=== PATIENT | female | born 1950 | race Caucasian/White ===

== ENCOUNTER 2019-09-25 12:57 | Observation (INO) | payer OTHER ==
[2019-09-25 13:19] LABS: Absolute Lymphocytes (CBC) 1.5 K/uL (0.7-4.9); Basophils % 0.9 % (0-1.3); Hematocrit 35.4 % (36.0-45.0); Lymphocytes % 24.6 % (15.3-44.8); MPV 8.9 fL (7.6-11.3); RBC Red Blood Cell Count 3.91 M/uL (3.86-4.86)
[2019-09-25 13:32] LABS: ALT/SGPT 21 U/L (12-78); AST/SGOT 16 U/L (15-37); Albumin 3.5 g/dL (3.4-5.0); Alkaline Phosphatase 47 U/L (45-117); BUN Blood Urea Nitrogen 19 mg/dL (7-18); Bicarbonate 22 mmol/L (21-32); Bilirubin Direct < 0.1 mg/dL (0-0.2); Bilirubin Total 0.5 mg/dL (0.2-1.0); Glucose Level 124 mg/dL (74-106); NT PRO-BNP 428 pg/mL (<125); Protein, Total 6.3 g/dL (6.4-8.2); Sodium Level 141 mmol/L (136-145); Troponin (Emerg Dept Use Only) < 0.02 ng/mL (0.0-0.045)
[2019-09-25 13:49] LABS: Protime INR 1.07
--- NOTE | 2019-09-25 14:31 | RAD REPORT ---
EXAM DESCRIPTION: CT - Head Brain Wo Cont - 09/25/2019 2:04 pm CLINICAL HISTORY: syncope COMPARISON: None TECHNIQUE: Computed axial tomography of the head was obtained. IV contrast was not requested. All CT scans are performed using dose optimization technique as appropriate and may include automated exposure control or mA/KV adjustment according to patient size. FINDINGS: An intracranial bleed is not seen . The ventricles are normal in caliber. No extra-axial fluid collection is noted. . Fluid within the sinuses/ mastoids is not seen. IMPRESSION: No acute intracranial abnormality is seen. If patient's symptoms persist MRI of the bra in would be recommended.
--- NOTE | 2019-09-25 14:59 | RAD REPORT ---
EXAM DESCRIPTION: Rudy Single View09/25/2019 2:18 pm CLINICAL HISTORY: Syncope COMPARISON: none FINDINGS: The lungs appear clear of acute infiltrate. The heart is normal size IMPRESSION: No acute abnormalities displayed
--- NOTE | 2019-09-25 15:17 | ER ---
Nurse's Notes [facility] [place] Name: Hazel Morgan Age: 68 yrs Sex: Female : 1950 Arrival Date: 09/25/2019 Time: 12:58 Bed 8 Private MD: Diagnosis: Syncope and collapse;Hypotension Presentation: 09/24 12:45 Chief complaint: EMS states: pt was outside working and had a syncopal episode. On EMS sv arrival pt's SBP was in the 80s HR-83 97% RA 98.2 BS-WNL. Pt was placed in the EMS truck and had 2 more syncopal episodes and was dizzy. 20G R AC and NS bolus 500 mls given. Coronavirus screen: Patient denies a cough. Patient denies shortness of breath or difficulty breathing. Patient denies measured and/or subjective temperature greater than 100.4F prior to today's visit. Patient denies travel on a cruise ship or to a country the [facility] currently lists as an affected area. Patient denies contact with known and/or suspected case of COVID-19. Proceed with normal triage. Patient instructed to continue to wear a mask when interacting with others. Patient moved to private room, placed in contact and droplet isolation with eye protection until further assessment. Ebola Screen: No symptoms or risks identified at this time. Risk Assessment: Do you want to hurt yourself or someone else? Patient reports no desire to harm self or others. Onset of symptoms was September 25, 2019. 12:45 Method Of Arrival: EMS: [facility] sv 12:57 Initial Sepsis Screen: Does the patient meet any 2 criteria? No. Patient's initial sv sepsis screen is negative. Does the patient have a suspected source of infection? No. Patient's initial sepsis screen is negative. 13:00 Acuity: ROSE 2 sv Triage Assessment: 12:45 General: Appears in no apparent distress. comfortable, well developed, Behavior is sv cooperative, appropriate for age, quiet. Pain: Denies pain. Neuro: Level of Consciousness is awake, alert, obeys commands, Oriented to person, place, time, situation, Moves all extremities. Full function Speech is normal, Facial symmetry appears normal, Reports a syncopal episode. Cardiovascular: Patient's skin is warm and dry. Rhythm is sinus rhythm. Respiratory: Airway is patent Respiratory effort is even, unlabored, Respiratory pattern is regular, symmetrical. Derm: Skin is intact, Skin is pink, warm \T\ dry. 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 - Family history:: not pertinent. - Social history:: Smoking status: Patient denies any tobacco usage or history of. Screenin:30 Abuse screen: Denies threats or abuse. Denies injuries from another. Nutritional sv screening: No deficits noted. Tuberculosis screening: No symptoms or risk factors identified. Fall Risk None identified. Assessment: 14:00 Reassessment: Patient appears in no apparent distress at this time. No changes from sv previously documented assessment. Patient and/or family updated on plan of care and expected duration. Pain level reassessed. Patient is alert, oriented x 3, equal unlabored respirations, skin warm/dry/pink. 15:31 Reassessment: Patient appears in no apparent distress at this time. No changes from sv previously documented assessment. Patient and/or family updated on plan of care and expected duration. Pain level reassessed. Patient is alert, oriented x 3, equal unlabored respirations, skin warm/dry/pink. 16:20 Reassessment: Patient appears in no apparent distress at this time. No changes from sv previously documented assessment. Patient and/or family updated on plan of care and expected duration. Pain level reassessed. Patient is alert, oriented x 3, equal unlabored respirations, skin warm/dry/pink. Vital Signs: 12:57 BP 146 / 78; Pulse 71; Resp 14; Temp 98; Pulse Ox 100% ; sv 13:30 BP 157 / 80; Pulse 80; Resp 14; Pulse Ox 95% ; sv 15:14 BP 180 / 97; Pulse 88; Resp 16; Pulse Ox 100% on R/A; sv 16:20 BP 189 / 84; Pulse 77; Resp 16; Pulse Ox 98% ; sv 16:30 BP 189 / 94 Standing; Pulse 74; Resp 18; kj1 16:30 BP 195 / 93 Sitting; Pulse 78; Resp 18; kj1 16:30 BP 194 / 96 Supine; Pulse 70; Resp 18; kj1 20:49 BP 174 / 79; Pulse 80; Resp 18; Pulse Ox 99% on R/A; ea ED Course: 12:45 Placed in gown. Bed in low position. Call light in reach. Side rails up X2. Cardiac sv monitor on. Pulse ox on. NIBP on. 12:55 Maintain EMS IV. Dressing intact. Good blood return noted. Site clean \T\ dry. Gauge \T\ sv site: 20G R AC. 12:58 Patient arrived in ED. sv 13:00 Yadira Vogel, RN is Primary Nurse. sv 13:00 Triage completed. sv 13:00 Initial lab(s) drawn, by me, sent to lab. sv 13:00 Arm band placed on. sv 13:00 Patient has correct armband on for positive identification. sv 13:27 Jonah Martinez MD is Attending Physician. geovany 14:04 CT Head Brain wo Cont In Process Unspecified. EDMS 14:18 XRAY Chest (1 view) In Process Unspecified. EDMS 15:15 Vladislav Jacobsen MD is Hospitalizing Provider. geovany 15:31 Awaiting disposition, Awaiting re-evaluation by ER provider. sv 16:30 Repeat lab(s) drawn. by ED staff, sent to lab. sv 19:08 Primary Nurse role handed off by Yadira Vogel RN sv 20:48 No provider procedures requiring assistance completed. Patient admitted, IV remains in ea place. Administered Medications: 12:50 Drug: NS 0.9% 1000 ml Route: IV; Rate: 1 bolus; Site: right antecubital; sv 14:00 Follow up: Response: No adverse reaction; IV Status: Completed infusion; IV Intake: sv 1000ml Intake: 14:00 IV: 1000ml; Total: 1000ml. sv Outcome: 15:16 Decision to Hospitalize by Provider. geovany 20:48 Admitted to Med/surg accompanied by tech, via wheelchair, with chart, Report called to pollo Bergman RN 20:48 Condition: stable 20:48 Instructed on the need for admit, Demonstrated understanding of instructions. 20:49 Patient left the ED. pollo Signatures: Dispatcher [employer] EDMS Yadira Vogel RN RN sv Anderson, Corey, MD MD cha Antunez, Elena, RN RN ea Jackson, Kandis [email or web address] Corrections: (The following items were deleted from the chart) 15:15 15:14 Pulse 102bpm; Resp 16bpm; Pulse Ox 100% RA; sv sv 15:31 15:14 BP 180 / 97; Pulse 102bpm; Resp 16bpm; Pulse Ox 100% RA; sv sv
--- NOTE | 2019-09-25 15:18 | EDPHYS ---
Physician Documentation [facility] Name: Hazel Morgan Age: 68 yrs Sex: Female : 1950 Arrival Date: 09/25/2019 Time: 12:58 Bed 8 Private MD: ED Physician Jonah Martinez HPI: 09/24 15:11 This 68 yrs old Female presents to ER via EMS with complaints of Syncope, geovany Dizziness. 15:11 The patient has experienced syncope, became unresponsive, collapsed. Onset: The geovany symptoms/episode began/occurred just prior to arrival. Duration: The patient has had multiple episodes, that last 20 second(s). Context: the episode(s) was witnessed, by a bystander, by EMS personnel. Associated injury: The patient did not suffer any apparent associated injury. Associated signs and symptoms: The patient has no apparent associated signs or symptoms. Current symptoms: Currently, the patient is not experiencing any symptoms. The patient has not experienced similar symptoms in the past. 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 - Family history:: not pertinent. - Social history:: Smoking status: Patient denies any tobacco usage or history of. ROS: 15:11 Constitutional: Negative for fever, chills, and weight loss, Eyes: Negative for injury, geovany pain, redness, and discharge, ENT: Negative for injury, pain, and discharge, Neck: Negative for injury, pain, and swelling, Respiratory: Negative for shortness of breath, cough, wheezing, and pleuritic chest pain, Abdomen/GI: Negative for abdominal pain, nausea, vomiting, diarrhea, and constipation, Back: Negative for injury and pain, : Negative for injury, bleeding, discharge, and swelling, MS/Extremity: Negative for injury and deformity, Skin: Negative for injury, rash, and discoloration, Psych: Negative for depression, anxiety, suicide ideation, homicidal ideation, and hallucinations, Allergy/Immunology: Negative for hives, rash, and allergies, Endocrine: Negative for neck swelling, polydipsia, polyuria, polyphagia, and marked weight changes, Hematologic/Lymphatic: Negative for swollen nodes, abnormal bleeding, and unusual bruising. 15:11 Cardiovascular: Positive for palpitations. 15:11 Neuro: Positive for syncope. Exam: 15:11 Constitutional: This is a well developed, well nourished patient who is awake, alert, geovany and in no acute distress. Head/Face: Normocephalic, atraumatic. Eyes: Pupils equal round and reactive to light, extra-ocular motions intact. Lids and lashes normal. Conjunctiva and sclera are non-icteric and not injected. Cornea within normal limits. Periorbital areas with no swelling, redness, or edema. ENT: Nares patent. No nasal discharge, no septal abnormalities noted. Tympanic membranes are normal and external auditory canals are clear. Oropharynx with no redness, swelling, or masses, exudates, or evidence of obstruction, uvula midline. Mucous membranes moist. Neck: Trachea midline, no thyromegaly or masses palpated, and no cervical lymphadenopathy. Supple, full range of motion without nuchal rigidity, or vertebral point tenderness. No Meningismus. Chest/axilla: Normal chest wall appearance and motion. Nontender with no deformity. No lesions are appreciated. Cardiovascular: Regular rate and rhythm with a normal S1 and S2. No gallops, murmurs, or rubs. Normal PMI, no JVD. No pulse deficits. Respiratory: Lungs have equal breath sounds bilaterally, clear to auscultation and percussion. No rales, rhonchi or wheezes noted. No increased work of breathing, no retractions or nasal flaring. Abdomen/GI: Soft, non-tender, with normal bowel sounds. No distension or tympany. No guarding or rebound. No evidence of tenderness throughout. Back: No spinal tenderness. No costovertebral tenderness. Full range of motion. Skin: Warm, dry with normal turgor. Normal color with no rashes, no lesions, and no evidence of cellulitis. MS/ Extremity: Pulses equal, no cyanosis. Neurovascular intact. Full, normal range of motion. Neuro: Awake and alert, GCS 15, oriented to person, place, time, and situation. Cranial nerves II-XII grossly intact. Motor strength 5/5 in all extremities. Sensory grossly intact. Cerebellar exam normal. Normal gait. Psych: Awake, alert, with orientation to person, place and time. Behavior, mood, and affect are within normal limits. 15:11 Musculoskeletal/extremity: DVT Exam: No signs of deep vein thrombosis. no pain, no swelling, no tenderness, negative Homans' sign noted on exam, no appreciated bluish discoloration, no erythema, no increased warmth. 15:23 Cardiovascular: Rate: normal, Rhythm: regular, Pulses: Pulses are 4+ in bilateral geovany radial, brachial, femoral, popliteal, posterior tibial and and dorsalis pedis arteries.. Heart sounds: normal, Edema: is not appreciated, JVD: is not appreciated. 15:24 Cardiovascular: Heart sounds: normal, normal S1and S2, no S3 or S4, no murmur, no rub, geovany no gallop. 15:26 ECG was reviewed by the Attending Physician. [facility] Vital Signs: 12:57 BP 146 / 78; Pulse 71; Resp 14; Temp 98; Pulse Ox 100% ; sv 13:30 BP 157 / 80; Pulse 80; Resp 14; Pulse Ox 95% ; sv 15:14 BP 180 / 97; Pulse 88; Resp 16; Pulse Ox 100% on R/A; sv 16:20 BP 189 / 84; Pulse 77; Resp 16; Pulse Ox 98% ; sv 16:30 BP 189 / 94 Standing; Pulse 74; Resp 18; kj1 16:30 BP 195 / 93 Sitting; Pulse 78; Resp 18; kj1 16:30 BP 194 / 96 Supine; Pulse 70; Resp 18; kj1 20:49 BP 174 / 79; Pulse 80; Resp 18; Pulse Ox 99% on R/A; ea MDM: 13:27 Patient medically screened. [facility] 15:15 Data reviewed: vital signs, nurses notes, EMS record, lab test result(s), EKG, geovany radiologic studies, CT scan, plain films. 15:19 Differential Diagnosis: cardiac arrhythmia, GI bleed, vasovagal episode. Data [facility] interpreted: quality assurance monitor final: rate is 102 beats/min, Pulse oximetry: on room air. Test interpretation: by ED physician or midlevel provider: ECG, plain radiologic studies. Counseling: I had a detailed discussion with the patient and/or guardian regarding: the historical points, exam findings, and any diagnostic results supporting the discharge/admit diagnosis, lab results, radiology results, the need for further work-up and treatment in the hospital. ED course: non focal, weak, no complaints at this time. 09/24 12:59 Order name: Basic Metabolic Panel; Complete Time: 15:10 sv 09/24 12:59 Order name: CBC with Diff; Complete Time: 13:28 sv 09/24 12:59 Order name: LFT's; Complete Time: 15:10 sv 09/24 12:59 Order name: Magnesium; Complete Time: 15:10 sv 09/24 12:59 Order name: NT PRO-BNP; Complete Time: 15:10 sv 09/24 12:59 Order name: PT-INR; Complete Time: 15:10 sv 09/24 12:59 Order name: Troponin (emerg Dept Use Only); Complete Time: 15:10 sv 09/24 16:13 Order name: Troponin (emerg Dept Use Only); Complete Time: 18:21 [facility] 09/24 16:47 Order name: Thyroid Stimulating Hormone EDMS 09/24 16:47 Order name: Urinalysis EDMS 09/24 16:47 Order name: CBC with Automated Diff EDMS 09/24 16:47 Order name: CBC with Automated Diff EDMS 09/24 16:47 Order name: CKMB Creatine Kinase MB EDMS 09/24 16:47 Order name: CKMB Creatine Kinase MB EDMS 09/24 12:59 Order name: XRAY Chest (1 view); Complete Time: 15:10 09/24 13:28 Order name: CT Head Brain wo Cont; Complete Time: 15:10 [facility] 09/24 16:47 Order name: CKMB Creatine Kinase MB EDMS 09/24 16:47 Order name: CKMB Creatine Kinase MB EDMS 09/24 16:47 Order name: Comprehensive Metabolic Panel EDMS 09/24 16:47 Order name: Comprehensive Metabolic Panel EDMS 09/24 16:47 Order name: Lipid Profile EDMS 09/24 16:47 Order name: Lipid Profile EDMS 09/24 16:47 Order name: Magnesium EDMS 09/24 16:47 Order name: Magnesium EDMS 09/24 16:47 Order name: Phosphorus EDMS 09/24 16:47 Order name: Phosphorus EDMS 09/24 16:47 Order name: Troponin I EDMS 09/24 16:47 Order name: Troponin I EDMS 09/24 16:47 Order name: Troponin I EDMS 09/24 16:47 Order name: Troponin I EDMS 09/24 12:59 Order name: EKG; Complete Time: 12:59 sv 09/24 12:59 Order name: Cardiac monitoring; Complete Time: 12:59 09/24 12:59 Order name: EKG - Nurse/Tech; Complete Time: 12:59 09/24 12:59 Order name: IV Saline Lock; Complete Time: 12:59 sv 09/24 12:59 Order name: Labs collected and sent; Complete Time: 12:59 09/24 12:59 Order name: O2 Per Protocol; Complete Time: 12:59 09/24 12:59 Order name: O2 Sat Monitoring; Complete Time: 12:59 sv 09/24 16:13 Order name: Orthostatics; Complete Time: 17:09 [facility] 09/24 16:47 Order name: Physical Therapy Consult [facility] 09/24 16:47 Order name: Heart Healthy [facility] 09/24 19:08 Order name: US; Complete Time: 19:55 EDMS EC:26 Rate is 74 beats/min. Rhythm is regular. QRS [place] is Normal. [place] interval is normal. QRS geovany interval is normal. QT interval is normal. No Q waves. T waves are Normal. No ST changes noted. Clinical impression: Normal ECG and No evidence of ischemia. Interpreted by me. Reviewed by me. Administered Medications: 12:50 Drug: NS 0.9% 1000 ml Route: IV; Rate: 1 bolus; Site: right antecubital; sv 14:00 Follow up: Response: No adverse reaction; IV Status: Completed infusion; IV Intake: sv 1000ml Disposition: 09/25/19 15:16 Hospitalization ordered by Vladislav Jacobsen for Observation. Preliminary diagnosis are Syncope and collapse, Hypotension. - Bed requested for Telemetry/MedSurg (observation). - Status is Observation. ea - Condition is Stable. - Problem is new. - Symptoms have improved. Signatures: Dispatcher [employer] [facility] Anneliese Palacios Stephanie, RN RN sv Anderson, Corey, MD MD cha Garcia, Cindy, RN RN cg Antunez, Elena, RN RN ea Corrections: (The following items were deleted from the chart) 16:44 15:16 Hospitalization Ordered by Vladislav Jacobsen MD for Observation. Preliminary bd diagnosis is Syncope and collapse; Hypotension. Bed requested for Telemetry/MedSurg (observation). Status is Observation. Condition is Stable. Problem is new. Symptoms have improved. geovany 19:52 16:44 09/25/2019 15:16 Hospitalization Ordered by Vladislav Jacobsen MD for Observation. cg Preliminary diagnosis is Syncope and collapse; Hypotension. Bed requested for [facility] ER HOLD. Status is Observation. Condition is Stable. Problem is new. Symptoms have improved. bd 20:49 19:52 09/25/2019 15:16 Hospitalization Ordered by Vladislav Jacobsen MD for Observation. ea Preliminary diagnosis is Syncope and collapse; Hypotension. Bed requested for Telemetry/MedSurg (observation). Status is Observation. Condition is Stable. Problem is new. Symptoms have improved. cg
--- NOTE | 2019-09-25 16:31 | P.HP ---
Certification for Inpatient Patient admitted to: Observation With expected LOS: <2 Midnights Patient will require the following post-hospital care: None Practitioner: I am a practitioner with admitting privileges, knowledge of patient current condition, hospital course, and medical plan of care. Services: Services provided to patient in accordance with Admission requirements found in Title 42 Section 412.3 of the Code of Federal Regulations Patient History Date of Service: 09/25/19 Reason for admission: Dizziness History of Present Illness: 68 yrs old Female with no significant past medical history other than GERD, presents with complaints of Syncope/presyncope, patient states that she was outside and climate was hot and humid and experiencing dizziness and passed out. Denies any seizure-like episode. No headache . No nausea vomiting. No trauma. No fever or chills. Denies any chest pain or shortness of breath. She was found to be hypotensive and was given IV fluids The patient was assessed in the ER and was admitted for further management Allergies No Known Allergies Allergy (Verified 09/25/19 17:47) Home medications list reviewed: Yes Home Medications: Famotidine [Pepcid] 20 mg PO BEDTIME 09/25/19 Xolar 150 mg IM DIRECTED 09/25/19 hydrOXYzine HCL [Atarax] 50 mg PO BEDTIME 09/25/19 - Past Medical/Surgical History Past Medical History: Reviewed- Non-Contributory Past Surgical History: Reviewed- Non-Contributory - Family History Family History: Reviewed- Non-Contributory - Social History Smoking Status: Never smoker Review of Systems 10-point ROS is otherwise unremarkable Physical Examination - Vital Signs Temperature: 98.1 F Blood Pressure: 146/88 Pulse: 76 Respirations: 18 - Physical Exam General: Alert, In no apparent distress HEENT: Atraumatic, Normocephalic Neck: Supple Respiratory: Clear to auscultation bilaterally, Normal air movement Cardiovascular: Regular rate/rhythm, Normal S1 S2 Capillary refill: <2 Seconds Gastrointestinal: Soft and benign, W/out hepatosplenomegaly Musculoskeletal: No clubbing, No swelling Integumentary: No rashes, No breakdown Neurological: Normal speech, Normal strength at 5/5 x4 extr, Other (Alert Awake ) Lymphatics: No axilla or inguinal lymphadenopathy - Studies Laboratory Data (last 24 hrs) 09/25/19 13:00: PT 12.7, INR 1.07 09/25/19 13:00: WBC 6.2, Hgb 12.0, Hct 35.4 L, Plt Count 198 09/25/19 13:00: Sodium 141, Potassium 4.0, BUN 19 H, Creatinine 1.16, Glucose 124 H, Magnesium 2.0, Total Bilirubin 0.5, AST 16, ALT 21, Alkaline Phosphatase 47 Assessment and Plan - Advance Directives Does patient have a Living Will: No Does patient have a Durable POA for Healthcare: No Physician Review Additional Text: Syncope Hypotension Dehydration Plan Monitor under telemetry Trend cardiac enzyme IV hydrate Will get a syncopal workup CT head is negative X-ray chest no acute event Will get a carotid Doppler Will also get an echocardiogram PT eval for orthostatics GI/DVT prophylaxis Advanced directives full code Disposition Possible Dc in a.m. if workup is negative Time Spent Managing Pts Care (In Minutes): 42
[2019-09-25] MEDS ORDERED: ACETAMINOPHEN 500 MG TAB PO PRN (16:43)
[2019-09-25] MEDS ORDERED: ONDANSETRON 4 MG/2 ML VIAL IV PRN (16:43)
[2019-09-25] MEDS: NA CHLORIDE 0.9% 1,000 ML IV SCH ×2 (17:00→21:31)
[2019-09-25] MEDS: ENOXAPARIN 40 MG/0.4 ML SQ SCH (18:00)
[2019-09-25] MEDS ORDERED: ENOXAPARIN 40 MG/0.4 ML SQ ONE (18:01)
[2019-09-25] MEDS ORDERED: NA CHLORIDE 0.9% 1,000 ML ONE (18:01)
--- NOTE | 2019-09-25 19:05 | RAD REPORT ---
EXAM DESCRIPTION: USCarotid Artery Bilateral09/25/2019 6:54 pm CLINICAL HISTORY: syncope COMPARISON: None FINDINGS: The velocity of the right internal carotid artery equals 66 cm/sec. The right ICA/CCA rati o 1.2 The velocity of the left internal carotid artery equals 58 cm/sec. The left ICA/CCA ratio 1. Mild plaque is present within the common and internal carotid arteries. Mild to moderate plaque withi n the right external carotid artery The vertebral arteries demonstrate antegrade flow IMPRESSION: Mild plaque within the internal carotid arteries without evidence of a hemodynamically s ignificant stenosis NASCET criteria used. Mild 0-49% stenosis Moderate 50-69% stenosis Severe 70-99% stenosis
[2019-09-25] MEDS ORDERED: PNEUMOCOCCAL VACCINE 0.5 ML IMVAC ONE (20:00)
[2019-09-25] MEDS ORDERED: hydrOXYzine HCL 25 MG TAB PO SCH (21:00)
[2019-09-25] MEDS ORDERED: FAMOTIDINE 20 MG TAB PO SCH (21:00)
[2019-09-25 21:42] VITALS: BMI 26.9
[2019-09-25 21:54] LABS: CKMB Creatine Kinase MB 1.6 ng/mL (0.3-3.6); Troponin I < 0.02 ng/mL (0.0-0.045)
[2019-09-26 00:07] LABS: Urine Appearance CLEAR; Urine Bilirubin NEGATIVE (NEG); Urine Blood NEGATIVE (NEG); Urine Color YELLOW; Urine Glucose NEGATIVE (NEG); Urine Protein NEGATIVE (NEG); Urine Urobilinogen 0.2 mg/dL (0.2-1.0); Urine pH 6.5 (5.0-7.0)
[2019-09-26 00:13] LABS: Urine Microscopic Reflex NO UMIC
[2019-09-26 01:41] LABS: CKMB Creatine Kinase MB 1.7 ng/mL (0.3-3.6); Troponin I < 0.02 ng/mL (0.0-0.045)
[2019-09-26] MEDS: NA CHLORIDE 0.9% 1,000 ML IV SCH ×3 (03:00→13:00)
[2019-09-26 05:00] LABS: Absolute Lymphocytes (CBC) 2.4 K/uL (0.7-4.9); Basophils % 1.2 % (0-1.3); Hematocrit 35.7 % (36.0-45.0); Lymphocytes % 35.2 % (15.3-44.8); MPV 8.8 fL (7.6-11.3); RBC Red Blood Cell Count 3.99 M/uL (3.86-4.86)
[2019-09-26 05:16] LABS: Albumin 3.4 g/dL (3.4-5.0); Bilirubin Total 0.4 mg/dL (0.2-1.0); Magnesium 2.1 mg/dL (1.8-2.4); Phosphorus 2.9 mg/dL (2.5-4.9); Potassium 4.2 mmol/L (3.5-5.1); Protein, Total 6.5 g/dL (6.4-8.2)
[2019-09-26 09:24] LABS: CKMB Creatine Kinase MB 2.2 ng/mL (0.3-3.6); Troponin I < 0.02 ng/mL (0.0-0.045)
[2019-09-26] MEDS: ENOXAPARIN 40 MG/0.4 ML SQ SCH (10:38)
--- NOTE | 2019-09-26 12:01 | P.DS ---
Admission Date: 09/25/19 Discharge Date: 09/27/19 Disposition: ROUTINE DISCHARGE Discharge Condition: GOOD Reason for Admission: Dizziness Brief History of Present Illness: 68 yrs old Female with no significant past medical history other than GERD, presents with complaints of Syncope/presyncope, patient states that she was outside and climate was hot and humid and experiencing dizziness and passed out. Denies any se izure-like episode. No headache . No nausea vomiting. No trauma. No fever or chills. Denies any chest pain or shortness of breath. She was found to be hypotensive and was given IV fluids The patient was assessed in the ER and was admitted for further management Hospital Course: Syncope Hypotension Dehydration The patient was admitted and was monitored closely under telemetry Cardiac enzymes were trended and was started on IV hydration syncopal workup was done CT head is negative X-ray chest no acute event carotid DopplerWas showing no carotid ultrasounds echocardiogram was also done PT eval for orthostatics Patient wanted go home and is being discharged home today in a stable condition with advice to follow up with PCP in 1 week and also with Cardiology as outpatient. Vital Signs/Physical Exam: Temp Pulse Resp BP Pulse Ox 97.8 F 82 18 159/88 H 96 09/26/19 08:00 09/26/19 08:00 09/26/19 08:00 09/26/19 08:00 09/26/19 08:00 General: Alert, In no apparent distress HEENT: Atraumatic, Normocephalic Neck: Supple Respiratory: Clear to auscultation bilaterally Cardiovascular: Regular rate/rhythm, Normal S1 S2 Capillary refill: <2 Seconds Gastrointestinal: Soft and benign Musculoskeletal: No clubbing Integumentary: No rashes Neurological: Normal speech, Normal strength at 5/5 x4 extr Lymphatics: No axilla or inguinal lymphadenopathy Laboratory Data at Discharge: WBC 6.7 K/uL (4.3-10.9) 09/26/19 04:38 Hgb 12.4 g/dL (12.0-15.0) 09/26/19 04:38 Hct 35.7 % (36.0-45.0) L 09/26/19 04:38 Plt Count 131 K/uL (152-406) L D 09/26/19 04:38 PT 12.7 SECONDS (9.2-12.8) 09/25/19 13:00 INR 1.07 09/25/19 13:00 Sodium 143 mmol/L (136-145) 09/26/19 04:38 Potassium 4.2 mmol/L (3.5-5.1) 09/26/19 04:38 BUN 19 mg/dL (7-18) H 09/26/19 04:38 Creatinine 1.12 mg/dL (0.55-1.3) 09/26/19 04:38 Glucose 104 mg/dL (74-106) 09/26/19 04:38 Phosphorus 2.9 mg/dL (2.5-4.9) 09/26/19 04:38 Magnesium 2.1 mg/dL (1.8-2.4) 09/26/19 04:38 Total Bilirubin 0.4 mg/dL (0.2-1.0) 09/26/19 04:38 AST 16 U/L (15-37) 09/26/19 04:38 ALT 19 U/L (12-78) 09/26/19 04:38 Alkaline Phosphatase 47 U/L (45-117) 09/26/19 04:38 Troponin I < 0.02 ng/mL (0.0-0.045) 09/26/19 08:34 Triglycerides 189 mg/dL (<150) H 09/26/19 04:38 Cholesterol 244 mg/dL (<200) H 09/26/19 04:38 HDL Cholesterol 52 mg/dL (40-60) 09/26/19 04:38 Cholesterol/HDL Ratio 4.69 09/26/19 04:38 Home Medications: Famotidine [Pepcid] 20 mg PO BEDTIME 09/25/19 Xolar 150 mg IM DIRECTED 09/25/19 hydrOXYzine HCL [Atarax*] 50 mg PO BEDTIME 09/25/19 Meclizine HCl 12.5 mg PO Q6H PRN #20 tablet 09/26/19 New Medications: Meclizine HCl 12.5 mg PO Q6H PRN #20 tablet PRN Reason: vertigo Time spent managing pt's care (in minutes): 42
[2019-09-26 12:29] VITALS: O2SAT 96
[2019-09-26 15:19] VITALS: TEMP 97.2
[2019-09-26 16:15] VITALS: BP 140/80
--- NOTE | 2019-09-27 07:37 | EKG ---
Test Date: 2019-09-25 Test Time: 12:56:43 [employer]: SERA MEASUREMENT RESULTS: Intervals: Rate: 74 DC: 170 QRSD: 76 QT: 426 QTc: 472 [place]: P: 43 DC: 170 QRS: -7 T: 49 INTERPRETIVE STATEMENTS: Normal sinus rhythm Left ventricular hypertrophy with repolarization abnormality Abnormal ECG Compared to ECG 11/17/2005 08:23:54 Left ventricular hypertrophy now present Early repolarization now present Sinus arrhythmia no longer present Electronically Signed On 09-27-19 07:32:55 CDT by Ken Alvarenga
--- NOTE | 2019-09-27 09:48 | ECHO ---
HEIGHT: 5 ft 3 in WEIGHT: 152 lb 0 oz DATE OF STUDY: 09/26/[address]: Julius Jacobsen DO 2-DIMENSIONAL: YES M.MODE: YES DOPPLER: YES COLOR FLOW: YES TDS: NO PORTABLE: NO DEFINITY: NO BUBBLE STUDY: NO DIAGNOSIS: SYNCOPE CARDIAC HISTORY: CATHERIZATION: NO SURGERY: NO PROSTHETIC VALVE: NO PACEMAKER: NO MEASUREMENTS (cm) DIASTOLIC (NORMALS) SYSTOLIC (NORMALS) IVSd 0.9 (0.6-1.2) LA Diam 2.6 (1.9-4.0) LVEF 57% LVIDd 3.4 (3.5-5.7) LVIDs 2.4 (2.0-3.5) %FS 29% LVPWd 1.0 (0.6-1.2) Ao Diam 2.9 (2.0-3.7) 2 DIMENSIONAL ASSESSMENT: RIGHT ATRIUM: NORMAL LEFT ATRIUM: NORMAL RIGHT VENTRICLE: NORMAL LEFT VENTRICLE: NORMAL TRICUSPID VALVE: NORMAL MITRAL VALVE: NORMAL PULMONIC VALVE: NORMAL AORTIC VALVE: SCLEROSIS PERICARDIAL EFFUSION: NONE AORTIC ROOT: NORMAL LEFT VENTRICULAR WALL MOTION: NORMAL DOPPLER/COLOR FLOW: MILD TRICUSPID REGURGITATION. COMMENTS: NORMAL LEFT VENTRICULAR SIZE AND FUNCTION. AORTIC SCLEROSIS WITH NO STENOSIS. MILD TRICUSPID REGURGITATION. TECHNOLOGIST: Emigdio LYN
== END 2019-09-26 16:11 | disposition home or self-care (01) ==
LOC: ER 12:57 → ERHOLD 16:44 → 2ND 20:13
PROVIDERS: ADMIT Family Medicine; ATTEND Family Medicine
DX: R55 Syncope and collapse (principal); I95.9 Hypotension, unspecified; E86.0 Dehydration; I65.23 Occlusion and stenosis of bilateral carotid arteries; I51.7 Cardiomegaly; R94.31 Abnormal electrocardiogram [ECG] [EKG]; Z11.59 Encounter for screening for other viral diseases; K21.9 Gastro-esophageal reflux disease without esophagitis; Z79.899 Other long term (current) drug therapy
CPT/HCPCS: 93005; 93306; 85025 ×2; 80048; 36415 ×2; 83735 ×2; 84100; 85610; 80061; 82947; 80076; 84443; 81003; 84484 ×5; 82553 ×3; 80053; 83880; 70450; 71045; 93880; 97162; 96360; 99285; J1650 ×2; J7030 ×2; G0378 ×3

== ENCOUNTER 2020-03-19 16:52 | Observation (INO) | payer OTHER ==
[2020-03-19 18:24] LABS: Absolute Lymphocytes (CBC) 0.9 K/uL (0.7-4.9); Basophils % 0.4 % (0-1.3); Hematocrit 39.2 % (36.0-45.0); Lymphocytes % 8.5 % (15.3-44.8); MPV 8.3 fL (7.6-11.3); RBC Red Blood Cell Count 4.38 M/uL (3.86-4.86)
--- NOTE | 2020-03-19 18:24 | RAD REPORT ---
EXAM DESCRIPTION: RAD - Chest Single View - 03/19/2020 6:16 pm CLINICAL HISTORY: weakness Chest pain. COMPARISON: Chest Single View dated 09/25/2019 FINDINGS: Portable technique limits examination quality. The lungs are emphysematous but grossly clear. The heart is normal in size. No displaced fractures. IMPRESSION: No acute intrathoracic process suspected.
--- NOTE | 2020-03-19 18:27 | RAD REPORT ---
EXAM DESCRIPTION: CT - Head Brain Wo Cont - 03/19/2020 6:21 pm CLINICAL HISTORY: DIZZINESS Headache, drowsiness COMPARISON: Head Brain Wo Cont dated 09/25/2019 TECHNIQUE: All CT scans are performed using dose optimization technique as appropriate and may inclu de automated exposure control or mA/KV adjustment according to patient size. FINDINGS: No intracranial hemorrhage, hydrocephalus or extra-axial fluid collection.No areas of brai n edema or evidence of midline shift. The paranasal sinuses and mastoids are clear. The calvarium is intact. IMPRESSION: No acute intracranial abnormality.
[2020-03-19 18:54] LABS: Protime INR 1.1
[2020-03-19] MEDS ORDERED: MECLIZINE HCL 12.5 MG TAB ONE (18:54)
[2020-03-19 18:57] LABS: ALT/SGPT 29 U/L (12-78); AST/SGOT 18 U/L (15-37); Albumin 3.4 g/dL (3.4-5.0); Alkaline Phosphatase 60 U/L (45-117); BUN Blood Urea Nitrogen 16 mg/dL (7-18); Bicarbonate 29 mmol/L (21-32); Bilirubin Direct < 0.1 mg/dL (0-0.2); Bilirubin Total 0.4 mg/dL (0.2-1.0); Glucose Level 115 mg/dL (74-106); Magnesium 2.4 mg/dL (1.8-2.4); NT PRO-BNP 325 pg/mL (<125); Potassium 4.4 mmol/L (3.5-5.1); Sodium Level 142 mmol/L (136-145); Troponin (Emerg Dept Use Only) < 0.02 ng/mL (0.0-0.045)
--- NOTE | 2020-03-19 20:07 | RAD REPORT ---
EXAM DESCRIPTION: CT - Head angio - 03/19/2020 7:57 pm CLINICAL HISTORY: DIZZINESS Headache, drowsiness COMPARISON: Head Brain Wo Cont dated 03/19/2020; Head Brain Wo Cont dated 09/25/2019 TECHNIQUE: CT angiography of the head was performed with MIPs. All CT scans are performed using dose optimization technique as appropriate and may include automated exposure control or mA/KV adjustment according to patient size. FINDINGS: No evidence of aneurysm is detected. No flow-limiting stenosis or vascular malformation id entified. Antegrade flow is seen in the vertebral arteries. The left vertebral artery is dominant. The visualized dural venous sinuses are patent. IMPRESSION: No significant flow abnormality is detected.
--- NOTE | 2020-03-19 20:12 | RAD REPORT ---
EXAM DESCRIPTION: CT - Neck Angio - 03/19/2020 7:57 pm CLINICAL HISTORY: dizziness Headache, drowsiness. COMPARISON: No comparisons TECHNIQUE: CT angiography of the neck vessels was performed with MIPs. All CT scans are performed using dose optimization technique as appropriate and may include automated exposure control or mA/KV adjustment according to patient size. FINDINGS: A left aortic arch is identified with normal three vessel configuration of the great vesse ls. No significant flow abnormality is seen of the common carotid bilaterally. No significant stenosis is identified involving the cervical segments of both internal carotid arteri es. Stenotic changes are seen at the origin of both external carotid arteries, greater on the right. Normal flow is seen within both vertebral arteries. IMPRESSION: No significant internal carotid artery stenosis is identified.
--- NOTE | 2020-03-19 20:42 | ER ---
Nurse's Notes [facility] Name: Hazel Morgan Age: 69 yrs Sex: Female : 1950 Arrival Date: 03/19/2020 Time: 17:27 Bed 20 Private MD: Diagnosis: Dizziness and giddiness;Malaise and fatigue Presentation: 03/19 17:35 Chief complaint: Patient states: episodes of dizziness and near syncope with nausea em that since Tuesday. Pt reports that they seems to happen when she is repositioning. Coronavirus screen: Client denies travel out of the [place] in the last 14 days. Ebola Screen: Patient denies exposure to infectious person. Patient denies travel to an Ebola-affected area in the 21 days before illness onset. 17:35 Method Of Arrival: EMS: [facility] em 17:35 Initial Sepsis Screen: Does the patient meet any 2 criteria? No. Patient's initial ss sepsis screen is negative. Does the patient have a suspected source of infection? No. Patient's initial sepsis screen is negative. Risk Assessment: Do you want to hurt yourself or someone else? Patient reports no desire to harm self or others. Onset of symptoms was March 17, 2020. Care prior to arrival: Medication(s) given: zofran 4 mg, IV initiated. 20 GA, in the right antecubital area. 17:35 Acuity: ROSE 3 ss 17:41 Care prior to arrival: Glucose check: 186. ss Historical: - Allergies: 17:41 No Known Allergies; ss - PMHx: 17:41 Hypertension; ss - PSHx: 17:41 Cholecystectomy; Hysterectomy; Detached retina; arm fx; ss - Immunization history:: Adult Immunizations up to date. - Social history:: Smoking status: Patient denies any tobacco usage or history of. Screenin:30 Abuse screen: Denies threats or abuse. Nutritional screening: No deficits noted. em Tuberculosis screening: No symptoms or risk factors identified. Fall Risk None identified. Assessment: 18:37 General: Appears in no apparent distress. comfortable, Behavior is calm, cooperative, em appropriate for age, Denies fever. Pain: Denies pain. Neuro: Level of Consciousness is awake, alert, obeys commands, Oriented to person, place, time, situation, Appropriate for age Reports dizziness, Denies headache. Cardiovascular: Capillary refill < 3 seconds Patient's skin is warm and dry. Respiratory: Airway is patent Respiratory effort is even, unlabored, Respiratory pattern is regular, symmetrical. GI: Reports nausea, vomiting. Derm: Skin is intact, is fragile, is thin, Skin is pink, warm \T\ dry. Musculoskeletal: Capillary refill < 3 seconds, Range of motion: intact in all extremities. 19:42 General: Appears in no apparent distress. comfortable, Behavior is calm, cooperative, rr5 appropriate for age, fot CT angio fo head and neck. Neuro: Level of Consciousness is awake, alert, obeys commands, Oriented to person, place, time, Reports dizziness. Cardiovascular: Capillary refill < 3 seconds Patient's skin is warm and dry. Respiratory: Airway is patent Respiratory effort is even, unlabored, Respiratory pattern is regular, symmetrical. GI:. : No signs and/or symptoms were reported regarding the genitourinary system. EENT: No signs and/or symptoms were reported regarding the EENT system. Derm: Skin is fragile, is thin, Skin temperature is warm. Musculoskeletal: Capillary refill < 3 seconds. 20:47 Reassessment: Patient appears in no apparent distress at this time. reassess by ED rr5 provider advised for admission patient agreed for the plan of care. patient able to walk from room to nurses station steady gait but she reported feeling weak. 22:00 Reassessment: Patient appears in no apparent distress at this time. Patient is alert, rr5 oriented x 3, equal unlabored respirations, skin warm/dry/pink. no complaints made awaiting for room assignment. 23:00 Reassessment: Patient appears in no apparent distress at this time. Patient and/or rr5 family updated on plan of care and expected duration. Pain level reassessed. Patient is alert, oriented x 3, equal unlabored respirations, skin warm/dry/pink. 03/20 00:05 Reassessment: Patient appears in no apparent distress at this time. resting eyes closed rr5 breathing spontaneously at room air. 00:45 Reassessment: Patient appears in no apparent distress at this time. Patient is alert, rr5 oriented x 3, equal unlabored respirations, skin warm/dry/pink. transfer to room 222. Vital Signs: 03/19 17:35 BP 154 / 69; Pulse 88; Resp 16; Temp 98.0(TE); Pulse Ox 100% on R/A; Weight 68.04 kg; em Height 5 ft. 3 in. (160.02 cm); Pain 0/10; 18:53 BP 156 / 77; Pulse 83; Resp 18; Pulse Ox 96% on R/A; em 19:42 BP 140 / 73; Pulse 91; Resp 16; Temp 98.1; Pulse Ox 98% ; rr5 21:00 BP 136 / 89; Pulse 85; Resp 17; Temp 98; Pulse Ox 98% ; rr5 22:00 BP 131 / 70; Pulse 80; Resp 16; Pulse Ox 99% ; Pain 0/10; rr5 23:10 BP 126 / 89; Pulse 86; Resp 15; Pulse Ox 98% ; rr5 03/20 00:22 BP 129 / 66; Pulse 77; Resp 14; Temp 98; Pulse Ox 96% ; rr5 03/19 17:35 Body Mass Index 26.57 (68.04 kg, 160.02 cm) em ED Course: 03/19 17:27 Patient arrived in ED. em 17:40 Triage completed. ss 17:41 Arm band placed on left wrist. ss 17:42 Chalino Han, RN is Primary Nurse. em 17:46 Jabier Godwin PA is PHCP. jmm 17:46 Marty Rayo MD is Attending Physician. jmm 18:05 Maintain EMS IV. Dressing intact. Good blood return noted. Site clean \T\ dry. Gauge \T\ shania 3 site: 18-gauge in [facility]. 18:07 Initial lab(s) drawn, by me, sent to lab. X-ray(s) taken. jp3 18:07 Patient maintains SpO2 saturation greater than 95% on room air. jp3 18:09 Bed in low position. Call light in reach. Side rails up X2. Warm blanket given. Verbal jp3 reassurance given. patient monitor on. Pulse ox on. NIBP on. 18:17 XRAY Chest (1 view) In Process Unspecified. EDMS 18:21 CT Head Brain wo Cont In Process Unspecified. EDMS 19:57 CT Head Angio In Process Unspecified. EDMS 19:58 CT Neck Angio In Process Unspecified. EDMS 20:39 Karthik Armas DO is Hospitalizing Provider. jmm 20:47 COVID swab sent to lab. rr5 03/20 00:49 No provider procedures requiring assistance completed. Patient admitted, IV remains in rr5 place. intact, No redness/swelling at site. Administered Medications: 03/19 18:41 Drug: Meclizine 50 mg Route: PO; em 19:40 Follow up: Response: No adverse reaction rr5 Outcome: 20:41 Decision to Hospitalize by Provider. noah 03/20 00:49 Admitted to Med/surg accompanied by tech, via stretcher, room 209. rr5 Condition: stable Instructed on the need for admit. 00:59 Patient left the ED. rr5 Signatures: Dispatcher [employer] EDMS Jabier Godwin PA PA jmm Munoz, Edgar, RN RN Patricia Stephenson, PIERRE RN Jose M Chatterjee 3 José Miguel Bonilla RN RN rr5
--- NOTE | 2020-03-19 20:42 | EDPHYS ---
Physician Documentation [facility] Name: Hazel Morgan Age: 69 yrs Sex: Female : 1950 Arrival Date: 03/19/2020 Time: 17:27 Bed 20 Private MD: ED Physician Marty Rayo HPI: 03/19 20:22 This 69 yrs old Female presents to ER via EMS with complaints of Near Syncope.jmm 20:23 The patient presents with sense of spinning. Onset: The symptoms/episode began/occurred jmm acutely, 2 day(s) ago. Modifying factors: The symptoms are alleviated by holding head still, the symptoms are aggravated by movement of head. Associated signs and symptoms: Pertinent negatives: chest pain, shortness of breath. This is a 69 year old female with a history of htn that presents to the ED with complaints of dizziness beginning this past Tuesday. Worsened today with generalized fatigue and nausea. Denies fever, denies chest pain. Historical: - Allergies: 17:41 No Known Allergies; ss - PMHx: 17:41 Hypertension; ss - PSHx: 17:41 Cholecystectomy; Hysterectomy; Detached retina; arm fx; ss - Immunization history:: Adult Immunizations up to date. - Social history:: Smoking status: Patient denies any tobacco usage or history of. ROS: 20:36 Constitutional: Negative for fever, chills, and weight loss, Cardiovascular: Negative jmm for chest pain, palpitations, and edema, Respiratory: Negative for shortness of breath, cough, wheezing, and pleuritic chest pain. 20:36 Abdomen/GI: Positive for nausea. 20:36 Neuro: Positive for dizziness. 20:36 All other systems are negative. Exam: 18:46 ECG was reviewed by the Attending Physician. jmm 20:36 Constitutional: This is a well developed, well nourished patient who is awake, alert, jmm and in no acute distress. Head/Face: atraumatic. 20:36 Neck: Trachea midline, Supple Chest/axilla: Normal chest wall appearance and motion. Cardiovascular: Regular rate and rhythm. No edema appreciated Respiratory: Normal respirations, no respiratory distress appreciated Abdomen/GI: Non distended, soft Back: Normal ROM Skin: General appearance color normal MS/ Extremity: Moves all extremities, no obvious deformities appreciated, no edema noted to the lower extremities 20:36 Eyes: Nystagmus: nystagmus with fast component noted, in the right eye. 20:36 Neuro: Orientation: is normal, Mentation: is normal, Memory: is normal, Cerebellar function: normal finger to nose testing, heel to saul testing is normal, Motor: is normal, Gait: is steady. 20:36 Psych: Behavior/mood is pleasant, cooperative. Vital Signs: 17:35 BP 154 / 69; Pulse 88; Resp 16; Temp 98.0(TE); Pulse Ox 100% on R/A; Weight 68.04 kg; em Height 5 ft. 3 in. (160.02 cm); Pain 0/10; 18:53 BP 156 / 77; Pulse 83; Resp 18; Pulse Ox 96% on R/A; em 19:42 BP 140 / 73; Pulse 91; Resp 16; Temp 98.1; Pulse Ox 98% ; rr5 21:00 BP 136 / 89; Pulse 85; Resp 17; Temp 98; Pulse Ox 98% ; rr5 22:00 BP 131 / 70; Pulse 80; Resp 16; Pulse Ox 99% ; Pain 0/10; rr5 23:10 BP 126 / 89; Pulse 86; Resp 15; Pulse Ox 98% ; rr5 03/20 00:22 BP 129 / 66; Pulse 77; Resp 14; Temp 98; Pulse Ox 96% ; rr5 03/19 17:35 Body Mass Index 26.57 (68.04 kg, 160.02 cm) em MDM: 03/19 17:46 Patient medically screened. [facility] 20:38 Data reviewed: vital signs, nurses notes. Counseling: I had a detailed discussion with [facility] the patient and/or guardian regarding: the historical points, exam findings, and any diagnostic results supporting the discharge/admit diagnosis, lab results, radiology results. ED course: Dizziness has improved but patient continues to feel generalized weakness. I discussed the patient with Jacques whom accepted the patient to Dr. Pawel pereyra. . 03/19 17:55 Order name: Basic Metabolic Panel; Complete Time: 19:02 [facility] 03/19 17:55 Order name: CBC with Diff; Complete Time: 18:44 [facility] 03/19 17:55 Order name: LFT's; Complete Time: 19:02 [facility] 03/19 17:55 Order name: Magnesium; Complete Time: 19:02 [facility] 03/19 17:55 Order name: NT PRO-BNP; Complete Time: 19:02 [facility] 03/19 17:55 Order name: PT-INR; Complete Time: 19:04 [facility] 03/19 17:55 Order name: Troponin (emerg Dept Use Only); Complete Time: 19:02 [facility] 03/19 17:55 Order name: XRAY Chest (1 view); Complete Time: 18:27 [facility] 03/19 17:55 Order name: CT Head Brain wo Cont; Complete Time: 18:30 [facility] 03/19 19:03 Order name: CT Head Angio; Complete Time: 20:09 [facility] 03/19 19:03 Order name: CT Neck Angio; Complete Time: 20:14 [facility] 03/19 22:28 Order name: SARS-COV-2 RT PCR [facility] 03/19 17:55 Order name: EKG; Complete Time: 17:56 [facility] 03/19 17:55 Order name: Cardiac monitoring; Complete Time: 18:10 [facility] 03/19 17:55 Order name: EKG - Nurse/Tech; Complete Time: 19:08 [facility] 03/19 17:55 Order name: IV Saline Lock; Complete Time: 18:10 [facility] 03/19 17:55 Order name: Labs collected and sent; Complete Time: 18:10 [facility] 03/19 17:55 Order name: O2 Per Protocol; Complete Time: 18:10 [facility] 03/19 17:55 Order name: O2 Sat Monitoring; Complete Time: 18:10 jmm EC:46 Rate is 78 beats/min. Rhythm is regular. QRS [place] is Normal. ME interval is normal. QRS jmm interval is normal. QT interval is normal. No Q waves. T waves are Normal. No ST changes noted. Reviewed by me. Administered Medications: 18:41 Drug: Meclizine 50 mg Route: PO; em 19:40 Follow up: Response: No adverse reaction rr5 Disposition: 03/19/20 20:41 Hospitalization ordered by Karthik Armas for Observation. Preliminary diagnosis are Dizziness and giddiness, Malaise and fatigue. - Bed requested for Telemetry/MedSurg (observation). - Status is Observation. rr5 - Condition is Stable. - Problem is new. - Symptoms have improved. Addendum: 03/22/2020 10:08 Co-signature as Attending Physician, Marty Rayo MD. r n Signatures: Dispatcher [employer] [facility] Carmelina Waterman, RN RN Jabier Hansen PA PA [facility] Chalino Han, RN RN Marty Nicole MD MD rn Smirch, Shelby, RN RN ss Roque, Raymond, RN RN rr5 Corrections: (The following items were deleted from the chart) 03/19 20:36 20:23 This is a 69 year old female with a history of htn that presents to the ED with [facility] complaints of dizziness beginning this past Tuesday. . [facility] :29 20:43 CORONAVIRUS+MR.LAB.BRZ ordered. [facility] 23:41 20:41 Hospitalization Ordered by Karthik Armas DO for Observation. Preliminary diagnosis is Dizziness and giddiness; Malaise and fatigue. Bed requested for Telemetry/MedSurg (observation). Status is Observation. Condition is Stable. Problem is new. Symptoms have improved. [facility] 03/20 00:59 03/19 23:41 03/19/2020 20:41 Hospitalization Ordered by Karthik Armas DO for rr5 Observation. Preliminary diagnosis is Dizziness and giddiness; Malaise and fatigue. Bed requested for Telemetry/MedSurg (observation). Status is Observation. Condition is Stable. Problem is new. Symptoms have improved. dw
--- NOTE | 2020-03-19 21:50 | P.HP ---
Certification for Inpatient Patient admitted to: Observation With expected LOS: <2 Midnights Patient will require the following post-hospital care: None Practitioner: I am a practitioner with admitting privileges, knowledge of patient current condition, hospital course, and medical plan of care. Services: Services provided to patient in accordance with Admission requirements found in Title 42 Section 412.3 of the Code of Federal Regulations <Jacques Carrillo - Last Filed: 03/19/20 21:45> Patient admitted to: Observation With expected LOS: <2 Midnights <Karthik Armas - Last Filed: 03/20/20 11:04> Patient History Date of Service: 03/19/20 Reason for admission: Dizziness History of Present Illness: 69-year-old female with history of hypertension presents to the emergency department for dizziness, weakness. Patient reports that since Tuesday she has had episodic severe dizziness with nausea and vomiting. Patient reports that she also had near syncopal episode where she was extremely weak and had to lower herself to the ground, patient lives at home alone with her has poor hearing and she had laid on the floor for a period of time until her figured out what was going on. Patient reports that she has had 4 or 5 episodes similar to this since Tuesday, reports that when she has this episode she cannot get up remove as this seems to make it worse. Patient was evaluated in the ER CBC unremarkable chemistry GFR is 55 CT head without contrast and CTA of the head and neck were negative for any acute findings, chest x-ray unremarkable. Patient given meclizine in the emergency department which did help some with her symptoms but she still is feeling nauseous and very weak. Attempted ambulation but patient was unable to ambulate without assistance, is very concerned for fall. Discussed with patient at length that she could likely go home with meclizine and strict fall precautions but she was uncomfortable with this. When I saw the patient in the ER she was awake, alert, oriented x3, no focal neurological deficits noted. - Past Medical/Surgical History -: CIU -: Hypertension -: Hysterectomy -: Cholecystectomy -: detached retina -: arm fx Psychosocial/ Personal History: Patient is retired schoolteacher, lives with her - Social History Alcohol use: No CD- Drugs: No Caffeine use: No Place of Residence: Home <Jacques Carrillo - Last Filed: 03/19/20 21:45> Date of Service: 03/20/20 Primary Care Provider: Dr. Lorenzana - Family History Family History: Reviewed- Non-Contributory - Social History Smoking Status: Never smoker <Karthik Armas - Last Filed: 03/20/20 11:04> Allergies No Known Allergies Allergy (Verified 03/20/20 01:57) Home Medications: Famotidine [Pepcid] 20 mg PO DAILY 09/25/19 hydrOXYzine HCL [Atarax*] 50 mg PO BEDTIME 09/25/19 Amlodipine Besylate 1 tab PO DAILY 03/20/20 Cetirizine HCl 1 tab PO DAILY 03/20/20 Review of Systems General: Weakness, Malaise Gastrointestinal: Nausea, Vomiting Neurological: Other (Dizziness), As per HPI <Jacques Carrillo - Last Filed: 03/19/20 21:45> Physical Examination - Physical Exam General: Alert, In no apparent distress HEENT: Atraumatic, PERRLA, Mucous membr. moist/pink Neck: Supple, 2+ carotid pulse no bruit, No LAD Respiratory: Clear to auscultation bilaterally, Normal air movement Cardiovascular: Regular rate/rhythm, Normal S1 S2 Gastrointestinal: Normal bowel sounds, No tenderness Musculoskeletal: No tenderness Integumentary: No rashes Neurological: Normal speech, Normal strength at 5/5 x4 extr, Normal tone, Normal affect, Abnormal gait (Unsteady gait, needs assistance) - Studies Laboratory Data (last 24 hrs) 03/19/20 18:07: PT 13.0 H, INR 1.10 03/19/20 18:07: WBC 10.7, Hgb 13.3, Hct 39.2, Plt Count 278 03/19/20 18:07: Sodium 142, Potassium 4.4, BUN 16, Creatinine 0.99, Glucose 115 H, Magnesium 2.4, Total Bilirubin 0.4, AST 18, ALT 29, Alkaline Phosphatase 60 <Jacques Carrillo - Last Filed: 03/19/20 21:45> - Studies Laboratory Data (last 24 hrs) 03/19/20 18:07: PT 13.0 H, INR 1.10 03/19/20 18:07: WBC 10.7, Hgb 13.3, Hct 39.2, Plt Count 278 03/19/20 18:07: Sodium 142, Potassium 4.4, BUN 16, Creatinine 0.99, Glucose 115 H, Magnesium 2.4, Total Bilirubin 0.4, AST 18, ALT 29, Alkaline Phosphatase 60 <Karthik Armas - Last Filed: 03/20/20 11:04> Assessment and Plan - Plan Assessment Episodic dizziness with nausea and vomiting-suspect vertigo Unsteady gait-risk for falls Hypertension Plan Episodic dizziness with nausea and vomiting-suspect vertigo: MRI in the morning, fall precautions, meclizine PRN. Will have PT evaluate, DVT prophylaxis with Lovenox 40 mg subcutaneous once daily. Anticipate discharge tomorrow. Unsteady gait-risk for falls: PT evaluation, fall precautions. Hypertension: Obtain and continue home medications as appropriate. Discharge Plan: Home Plan to discharge in: 24 Hours - Advance Directives Does patient have a Living Will: No Does patient have a Durable POA for Healthcare: No - Code Status/Comfort Care Code Status Assessed: Yes (Full code) Critical Care: No Time Spent Managing Pts Care (In Minutes): 55 <Jacques Carrillo - Last Filed: 03/19/20 21:45> - Plan Agree with plan of care. Case discussed with nurse practitioner. Await MRI. Patient feels better. Patient appears slightly dry. Will give fluid bolus. Check orthostatics. Anticipate discharge today. <Karthik Armas - Last Filed: 03/20/20 11:04>
[2020-03-20] MEDS ORDERED: ONDANSETRON 4 MG/2 ML VIAL IV PRN (00:30)
[2020-03-20] MEDS ORDERED: MECLIZINE HCL 12.5 MG TAB PO PRN (00:30)
[2020-03-20] MEDS ORDERED: ACETAMINOPHEN 500 MG TAB PO PRN (00:30)
[2020-03-20 01:08] VITALS: O2SAT 96
[2020-03-20 01:53] VITALS: BMI 25.4
[2020-03-20] MEDS ORDERED: PNEUMOCOCCAL VACCINE 0.5 ML IMVAC ONE (06:00)
[2020-03-20 06:03] LABS: Magnesium 2.4 mg/dL (1.8-2.4); Potassium 4.3 mmol/L (3.5-5.1)
[2020-03-20 06:14] LABS: Absolute Lymphocytes (CBC) 1.6 K/uL (0.7-4.9); Basophils % 0.5 % (0-1.3); Hematocrit 37.9 % (36.0-45.0); Lymphocytes % 19.3 % (15.3-44.8); MPV 8.8 fL (7.6-11.3); RBC Red Blood Cell Count 4.18 M/uL (3.86-4.86)
[2020-03-20] MEDS ORDERED: NA CHLORIDE 0.9% 500 ML IV ONE (06:28)
[2020-03-20] MEDS ORDERED: ENOXAPARIN 40 MG/0.4 ML SQ SCH (09:00)
[2020-03-20 10:05] LABS: Blood Morphology Comment NOT SEEN (NOT SEEN); Platelet Estimate ADEQ
--- NOTE | 2020-03-20 11:06 | P.DS ---
Admission Date: 03/19/20 Discharge Date: 03/20/20 Primary Care Provider: Dr. Lorenzana Disposition: ROUTINE DISCHARGE Discharge Condition: GOOD Reason for Admission: dizziness Consultations: none Procedures: COVID: negative CT head: FINDINGS: No intracranial hemorrhage, hydrocephalus or extra-axial fluid collection.No areas of brain edema or evidence of midline shift. The paranasal sinuses and mastoids are clear. The calvarium is intact. IMPRESSION: No acute intracranial abnormality. CTA Head: FINDINGS: No evidence of aneurysm is detected. No flow-limiting stenosis or vascular malformation identified. Antegrade flow is seen in the vertebral arteries. The left vertebral artery is dominant. The visualized dural venous sinuses are patent. IMPRESSION: No significant flow abnormality is detected. Neck CTA: FINDINGS: A left aortic arch is identified with normal three vessel configuration of the great vessels. No significant flow abnormality is seen of the common carotid bilaterally. No significant stenosis is identified involving the cervical segments of both internal carotid arteries. Stenotic changes are seen at the origin of both external carotid arteries, greater on the right. Normal flow is seen within both vertebral arteries. IMPRESSION: No significant internal carotid artery stenosis is identified. MRI Brain: FINDINGS: Diffusion imaging shows approximately 3-4 centimeter area of abnormal diffusion in the peripheral superior right cerebellum. There is additional diffusion signal abnormality in the medial left cerebellum and in the midline cerebellum parenchyma. No basilar artery or posterior circulation abnormality seen on the prior day CT angio imaging. No other infarction changes seen. Patient has mild to moderate underlying atrophy. Very little if any measurable chronic ischemic change in the cerebral white matter. Ventricles are in proportion to the volume loss. No significant edema at the area of stroke. No mass effect or midline shift. No extra-axial fluid collections. Abbasi-matter/whit e matter junction is preserved. Signal voids are seen as a normal finding in the major intracranial vessels. No sella or supra sella abnormality seen. Mastoid air cells are clear. No acute paranasal sinus finding. IMPRESSION: Acute nonhemorrhagic infarction changes involving a 3-4 centimeter area of the peripheral superior right cerebellum. Additional acute nonhemorrhagic changes in the medial left cerebellum and midline cerebellum tissues. Patient has mild to moderate atrophy with little to no identifiable chronic ischemic change in the cerebral white matter. Medical problem list: Episodic dizziness with nausea and vomiting secondary to acute nonhemorrhagic infarct changes involving a 3-4 cm area of peripheral superior right cerebellum and additional acute nonhemorrhagic changes in the medial left cerebellum/midline cerebellum tissue Unsteady gait-risk for falls Hypertension Chronic urticaria Brief History of Present Illness: 69-year-old female with history of hypertension presents to the emergency department for dizziness, weakness. Patient reports that since Tuesday she has had episodic severe dizziness with nausea and vomiting. Patient reports that she also had near syncopal episode where she was extremely weak and had to lower herself to the ground, patient lives at home alone with her has poor hearing and she had laid on the floor for a period of time until her figured out what was going on. Patient reports that she has had 4 or 5 episodes similar to this since Tuesday, reports that when she has this episode she cannot get up remove as this seems to make it worse. Patient was evaluated in the ER CBC unremarkable chemistry GFR is 55, CT head without contrast and CTA of the head and neck were negative for any acute findings, chest x-ray unremarkable. The patient was admitted for further evaluation and treatment Hospital Course: Patient presented with Episodic dizziness with nausea and vomiting secondary. This was found to be related to acute nonhemorrhagic infarct changes involving a 3-4 cm area of peripheral superior right cerebellum and additional acute nonhemorrhagic changes in the medial left cerebellum/midline cerebellum tissue. Patient was monitored closely. CT scan with and without contrast did not show any evidence of stenosis or flow abnormality. Neurology was consulted. Patient was started on medication for CVA. LDL 122. Neurology recommends to initiate aspirin 81 mg daily, Plavix 75 mg daily, folic acid 1 mg daily and Lipitor 40 mg daily. Patient has done well. Patient is back to baseline. No further dizziness, nausea and vomiting noted. Patient was able to ambulate well with physical therapy without difficulty. At discharge patient will continue with aspirin 81 mg daily, Plavix 75 mg daily, folic acid 1 mg daily, and Lipitor 40 mg daily. Patient will continue with aspirin and Plavix for at least 1 month. After 1 month neurology will consider eliminating 1 of the medications. Recommend to recheck fasting lipid panel in 4-6 weeks to monitor her fasting lipid panel. Adjustments in her medication can be done by Neurology or her PCP if required. Education on CVA, hypertension and hyperlipidemia will be provided. Patient will follow up with neurology in 1 week. Patient with hypertension. Patient may continue with Norvasc 5 mg daily. For this week blood pressure can remain around 160-170 systolic. After 1 week better blood pressure control will be required. Goal blood pressure of less than 130/80 should be reached. Further adjustment in medication can be done by her PCP or neurology. Patient with chronic urticaria. Patient will continue with her current medication -Zyrtec Pepcid and hydralazine. Patient will follow up with her full service vending driver for further treatment. Vital Signs/Physical Exam: Temp Pulse Resp BP Pulse Ox 98.3 F 82 17 158/70 H 99 03/20/20 08:00 03/20/20 08:00 03/20/20 08:00 03/20/20 08:00 03/20/20 08:00 General: Alert, In no apparent distress, Oriented x3, Cooperative HEENT: Atraumatic Neck: Supple Respiratory: Clear to auscultation bilaterally, Normal air movement Cardiovascular: Normal pulses, Regular rate/rhythm Gastrointestinal: Normal bowel sounds, Soft and benign, Non-distended, No tenderness, No masses, No rebound, No guarding Musculoskeletal: No erythema, No tenderness, No warmth Integumentary: No tenderness/swelling, No erythema, No warmth, No cyanosis Neurological: Normal speech, Normal strength at 5/5 x4 extr, Normal tone, Normal affect Laboratory Data at Discharge: WBC 8.4 K/uL (4.3-10.9) D 03/20/20 05:36 Hgb 12.6 g/dL (12.0-15.0) 03/20/20 05:36 Hct 37.9 % (36.0-45.0) 03/20/20 05:36 Plt Count 235 K/uL (152-406) 03/20/20 05:36 PT 13.0 SECONDS (9.5-12.5) H 03/19/20 18:07 INR 1.10 03/19/20 18:07 Sodium 143 mmol/L (136-145) 03/20/20 05:36 Potassium 4.3 mmol/L (3.5-5.1) 03/20/20 05:36 BUN 16 mg/dL (7-18) 03/20/20 05:36 Creatinine 0.98 mg/dL (0.55-1.3) 03/20/20 05:36 Glucose 106 mg/dL (74-106) 03/20/20 05:36 Magnesium 2.4 mg/dL (1.8-2.4) 03/20/20 05:36 Total Bilirubin 0.4 mg/dL (0.2-1.0) 03/19/20 18:07 AST 18 U/L (15-37) 03/19/20 18:07 ALT 29 U/L (12-78) 03/19/20 18:07 Alkaline Phosphatase 60 U/L (45-117) 03/19/20 18:07 Home Medications: Famotidine [Pepcid] 20 mg PO DAILY 09/25/19 hydrOXYzine HCL [Atarax*] 50 mg PO BEDTIME 09/25/19 Amlodipine Besylate 1 tab PO DAILY 03/20/20 Aspirin [Aspirin EC 81 MG] 81 mg PO DAILY #90 tablet. 03/20/20 Atorvastatin Calcium [Lipitor] 40 mg PO BEDTIME #30 tab 03/20/20 Cetirizine HCl 1 tab PO DAILY 03/20/20 Clopidogrel Bisulfate [Plavix*] 75 mg PO DAILY #30 tablet 03/20/20 Folic Acid 1 mg PO DAILY #30 tablet 03/20/20 New Medications: Aspirin [Aspirin EC 81 MG] 81 mg PO DAILY #90 tablet. Folic Acid 1 mg PO DAILY #30 tablet Atorvastatin Calcium [Lipitor] 40 mg PO BEDTIME #30 tab Clopidogrel Bisulfate [Plavix*] 75 mg PO DAILY #30 tablet Patient Discharge Instructions: Recommend follow up with PCP in 1 week. Patient presented with Episodic dizziness with nausea and vomiting secondary. This was found to be related to acute nonhemorrhagic infarct changes involving a 3-4 cm area of peripheral superior right cerebellum and additional acute nonhemorrhagic changes in the medial left cerebellum/midline cerebellum tissue. Patient was monitored closely. CT scan with and without contrast did not show any evidence of stenosis or flow abnormality. Neurology was consulted. Patient was started on medication for CVA. LDL 122. Neurology recommends to initiate aspirin 81 mg daily, Plavix 75 mg daily, folic acid 1 mg daily and Lipitor 40 mg daily. Patient has done well. Patient is back to baseline. No further dizziness, nausea and vomiting noted. Patient was able to ambulate well with physical therapy without difficulty. At discharge patient will continue with aspirin 81 mg daily, Plavix 75 mg daily, folic acid 1 mg daily, and Lipitor 40 mg daily. Patient will continue with aspirin and Plavix for at least 1 month. After 1 mon th neurology will consider eliminating 1 of the medications. Recommend to recheck fasting lipid panel in 4-6 weeks to monitor her fasting lipid panel. Adjustments in her medication can be done by Neurology or her PCP if required. Education on CVA, hypertension and hyperlipidemia will be provided. Patient will follow up with neurology in 1 week. Patient with hypertension. Patient may continue with Norvasc 5 mg daily. For this week blood pressure can remain around 160-170 systolic. After 1 week better blood pressure control will be required. Goal blood pressure of less than 130/80 should be reached. Further adjustment in medication can be done by her PCP or neurology. Patient with chronic urticaria. Patient will continue with her current medication -Zyrtec Pepcid and hydralazine. Patient will follow up with her full service vending driver for further treatment. Diet: AHA Activity: Fall precautions Followup: [facility]OTO[facility] [Primary Care Provider] - Time spent managing pt's care (in minutes): 55
--- NOTE | 2020-03-20 11:33 | RAD REPORT ---
EXAM DESCRIPTION: MRI - Brain Wo Cont - 03/20/2020 10:49 am CLINICAL HISTORY: dizziness, near-syncope COMPARISON: Head angio dated 03/19/2020; Neck Angio dated 03/19/2020; Head Brain Wo Cont dated 03/19/19 TECHNIQUE: Sagittal T1-weighted images were obtained along with axial PD, heavily T2-weighted and T2 -FLAIR images. Axial DWI and ADC mapping sequences were also obtained along with coronal heavily T2-w eighted images. FINDINGS: Diffusion imaging shows approximately 3-4 centimeter area of abnormal diffusion in the per ipheral superior right cerebellum. There is additional diffusion signal abnormality in the medial lef t cerebellum and in the midline cerebellum parenchyma. No basilar artery or posterior circulation abn ormality seen on the prior day CT angio imaging. No other infarction changes seen. Patient has mild t o moderate underlying atrophy. Very little if any measurable chronic ischemic change in the cerebral white matter. Ventricles are in proportion to the volume loss. No significant edema at the area of st roke. No mass effect or midline shift. No extra-axial fluid collections. Abbasi-matter/white matter hernesto ction is preserved. Signal voids are seen as a normal finding in the major intracranial vessels. No sella or supra sella abnormality seen. Mastoid air cells are clear. No acute paranasal sinus finding. IMPRESSION: Acute nonhemorrhagic infarction changes involving a 3-4 centimeter area of the periphera l superior right cerebellum. Additional acute nonhemorrhagic changes in the medial left cerebellum and midline cerebellum tissues. Patient has mild to moderate atrophy with little to no identifiable chronic ischemic change in the ce rebral white matter.
[2020-03-20] MEDS ORDERED: ASPIRIN EC 81 MG TAB PO SCH (13:17)
[2020-03-20] MEDS ORDERED: FOLIC ACID 1 MG TABLET PO SCH (13:18)
[2020-03-20] MEDS ORDERED: CLOPIDOGREL 75 MG TABLET PO SCH (13:18)
[2020-03-20 14:29] LABS: Thyroid Stimulating Hormone 2.15 uIU/mL (0.360-3.740)
--- NOTE | 2020-03-20 16:15 | RAD REPORT ---
EXAM DESCRIPTION: US - CP - 03/20/2020 3:44 pm CLINICAL HISTORY: CVA cerebellem Headache, drowsiness, CVA COMPARISON: Neck Angio dated 03/19/2020; Brain Wo Cont dated 03/20/2020; Head angio dated 03/19/2020; H ead Brain Wo Cont dated 03/19/2020 TECHNIQUE: Real-time sonographic evaluation of both carotid systems was performed. Doppler interroga tion was performed with waveform tracing bilaterally. FINDINGS: Normal high resistance waveforms are noted in both external carotid arteries. The common c arotid arteries and internal carotid arteries show normal low resistance waveforms. Moderate hard plaque is seen in the right carotid bulb. Peak systolic and end diastolic velocity valu es and the ICA/CCA ratios are in the non-hemodynamically significant range. Antegrade flow seen in both vertebral arteries. IMPRESSION: Moderate hard plaque is seen in the right carotid bulb. No evidence of a hemodynamically significant stenosis.
[2020-03-20 16:55] VITALS: TEMP 98
[2020-03-20 17:33] VITALS: BP 142/78
[2020-03-20] MEDS ORDERED: hydrOXYzine HCL 25 MG TAB PO SCH (21:00)
[2020-03-20] MEDS ORDERED: ATORVASTATIN 40 MG TAB PO SCH (21:00)
[2020-03-21] MEDS ORDERED: FAMOTIDINE 20 MG TAB PO SCH (09:00)
[2020-03-21] MEDS ORDERED: CETIRIZINE HCL 5 MG TABLET PO SCH (09:00)
[2020-03-21] MEDS ORDERED: AMLODIPINE 5 MG TAB PO SCH (09:00)
--- NOTE | 2020-03-21 09:25 | ECHO ---
HEIGHT: 5 ft 3 in WEIGHT: 143 lb 14.4 oz DATE OF STUDY: 03/20/[address]: Karthik Armas DO 2-DIMENSIONAL: YES M.MODE: YES DOPPLER: YES COLOR FLOW: YES TDS: NO PORTABLE: NO DEFINITY: NO BUBBLE STUDY: NO DIAGNOSIS: CEREBRAL VASCULAR ACCIDENT CARDIAC HISTORY: CATHERIZATION: SURGERY: PROSTHETIC VALVE: PACEMAKER: MEASUREMENTS (cm) DIASTOLIC (NORMALS) SYSTOLIC (NORMALS) IVSd 1.1 (0.6-1.2) LA Diam 3.8 (1.9-4.0) LVEF 69% LVIDd 3.2 (3.5-5.7) LVIDs 2.0 (2.0-3.5) %FS 37% LVPWd 1.3 (0.6-1.2) Ao Diam 2.5 (2.0-3.7) 2 DIMENSIONAL ASSESSMENT: RIGHT ATRIUM: NORMAL LEFT ATRIUM: NORMAL RIGHT VENTRICLE: NORMAL LEFT VENTRICLE: NORMAL TRICUSPID VALVE: NORMAL MITRAL VALVE: NORMAL PULMONIC VALVE: NORMAL AORTIC VALVE: PERICARDIAL EFFUSION: NONE AORTIC ROOT: NORMAL LEFT VENTRICULAR WALL MOTION: NORMAL DOPPLER/COLOR FLOW: SEE BELOW. COMMENTS: NORMAL LEFT VENTRICULAR EJECTION FRACTION 55-60%. NORMAL WALL MOTION. MILD AORTIC INSUFFICIENCY. TECHNOLOGIST: Parvin JARRETT
== END 2020-03-20 18:15 | disposition home or self-care (01) ==
LOC: ER 16:52 → ERHOLD 21:39 → 2ND 03-20 00:25
PROVIDERS: ADMIT Family Medicine; ATTEND Family Medicine
DX: I63.89 Other cerebral infarction (principal); I10 Essential (primary) hypertension; L50.8 Other urticaria; Z20.822 Contact with and (suspected) exposure to COVID-19; R26.81 Unsteadiness on feet
CPT/HCPCS: 93306; 85025 ×2; 80048 ×2; 36415; 83735 ×2; 85610; 80061; 80076; 84443; 84484; 83880; 70450; 70496; 70498; 71045; 93880; 70551; 97112; 97161; 97165; 99285; U0003; Q9967; J1650; J7040; G0378

== ENCOUNTER 2020-03-27 14:29 | Emergency (ER) | payer OTHER ==
[2020-03-27 15:23] LABS: Protime INR 1.01
[2020-03-27 15:24] LABS: Basophils % 0.6 % (0-1.3); Hematocrit 41.1 % (36.0-45.0); Lymphocytes % 17.2 % (15.3-44.8); MPV 8.2 fL (7.6-11.3); RBC Red Blood Cell Count 4.56 M/uL (3.86-4.86)
--- NOTE | 2020-03-27 15:40 | RAD REPORT ---
EXAM DESCRIPTION: RAD - Chest Single View - 03/27/2020 3:25 pm CLINICAL HISTORY: dizziness, fatigue Chest pain. COMPARISON: Chest Single View dated 03/19/2020; Chest Single View dated 09/25/2019 FINDINGS: Portable technique limits examination quality. The lungs are grossly clear. The heart is normal in size. No displaced fractures. IMPRESSION: No acute intrathoracic process suspected.
--- NOTE | 2020-03-27 15:53 | RAD REPORT ---
EXAM DESCRIPTION: CT - Head Brain Wo Cont - 03/27/2020 3:45 pm CLINICAL HISTORY: DIZZINESS Headache, drowsiness COMPARISON: Head angio dated 03/19/2020; Head Brain Wo Cont dated 03/19/2020 TECHNIQUE: All CT scans are performed using dose optimization technique as appropriate and may inclu de automated exposure control or mA/KV adjustment according to patient size. FINDINGS: No intracranial hemorrhage, hydrocephalus or extra-axial fluid collection.Mild to moderate generalized brain atrophy.No areas of brain edema or evidence of midline shift. The paranasal sinuses and mastoids are clear. The calvarium is intact. IMPRESSION: No acute intracranial abnormality.
[2020-03-27 16:13] LABS: ALT/SGPT 30 U/L (12-78); AST/SGOT 23 U/L (15-37); Albumin 3.9 g/dL (3.4-5.0); Alkaline Phosphatase 55 U/L (45-117); BUN Blood Urea Nitrogen 10 mg/dL (7-18); Bicarbonate 28 mmol/L (21-32); Bilirubin Direct < 0.1 mg/dL (0-0.2); Bilirubin Total 0.5 mg/dL (0.2-1.0); Glucose Level 113 mg/dL (74-106); Magnesium 2.4 mg/dL (1.8-2.4); NT PRO-BNP 152 pg/mL (<125); Protein, Total 7.2 g/dL (6.4-8.2); Sodium Level 140 mmol/L (136-145); Troponin (Emerg Dept Use Only) < 0.02 ng/mL (0.0-0.045)
[2020-03-27 17:18] LABS: Urine Blood NEGATIVE (NEG); Urine Glucose NEGATIVE (NEG); Urine Protein NEGATIVE (NEG); Urine Specific Gravity 1.015 (1.005-1.030); Urine pH 7.5 (5.0-7.0)
--- NOTE | 2020-03-27 17:22 | ER ---
Nurse's Notes [facility] Name: Hazel Morgan Age: 69 yrs Sex: Female : 1950 Arrival Date: 03/27/2020 Time: 14:42 Bed 23 Private MD: Diagnosis: Dizziness and giddiness Presentation: 03/27 14:32 Chief complaint: EMS states: Pt. is 69 yr. old A \T\ O x 4, from home. Was sitting in the rb3 chair eating, then the pt. reports that she found herself on the floor. C/o feeling dizzy and weak. 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 Was put on Plavix and Atorvastatin. GCS 15, BP 118/68, P 80, BS 108, and 12=lead showed SR. Stroke assessment was negative. Coronavirus screen: At this time, the client does not indicate any symptoms associated with coronavirus-19. Ebola Screen: Patient denies exposure to infectious person. Initial Sepsis Screen: Does the patient meet any 2 criteria? No. Patient's initial sepsis screen is negative. Does the patient have a suspected source of infection? No. Patient's initial sepsis screen is negative. Risk Assessment: Do you want to hurt yourself or someone else? Patient reports no desire to harm self or others. Onset of symptoms was March 27, 2020. 14:32 Method Of Arrival: EMS: [facility] 3 14:32 Acuity: ROSE 3 rb3 Triage Assessment: 14:32 General: Appears in no apparent distress. comfortable, Behavior is calm, cooperative. rb3 Pain: Denies pain. 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 Neuro: Level of Consciousness is awake, alert, obeys commands, Oriented to person, place, time, situation, Telecommunications Analyst are equal bilaterally Moves all extremities. Gait is unable to obtain at this time. Speech is normal, Facial symmetry appears normal, Pupils are PERRLA, blind in the left eye. Neuro: Reports dizziness, weakness. Cardiovascular: Capillary refill < 3 seconds Patient's skin is warm and dry. Respiratory: Airway is patent Respiratory effort is even, unlabored, Respiratory pattern is regular, symmetrical, Denies shortness of breath. GI: No signs and/or symptoms were reported involving the gastrointestinal system. : No signs and/or symptoms were reported regarding the genitourinary system. Musculoskeletal: Range of motion: intact in all extremities. Historical: - Allergies: 14:32 No Known Allergies; rb3 - Home Meds: 14:32 Zyrtec 10 mg Oral tab 1 tab once daily [Active]; hydroxyzine HCl 25 mg Oral tab 2 tab rb3 nightly [Active]; Famotidine Oral once daily [Active]; amlodipine 5 mg tab 1 tab once daily [Active]; atorvastatin 40 mg oral tab 1 tab once daily [Active]; folic acid 1 mg Oral tab 1 tab once daily [Active]; Plavix 75 mg Oral tab 1 tab once daily [Active]; aspirin 81 mg Oral chew 1 tab once daily [Active]; - PMHx: 14:32 CIU; Hypertension; rb3 - PSHx: 14:32 Cholecystectomy; Hysterectomy; Detached retina; arm fx; rb3 - Immunization history:: Adult Immunizations up to date. - Social history:: Smoking status: Patient/guardian denies using. Screenin:32 Abuse screen: Denies threats or abuse. Nutritional screening: No deficits noted. rb3 Tuberculosis screening: No symptoms or risk factors identified. Fall Risk Fall in past 12 months (25 points). Secondary diagnosis (15 points) CVA, IV access (20 points). Ambulatory Aid- None/Bed Rest/Nurse Assist (0 pts). Gait- Normal/Bed Rest/Wheelchair (0 pts) Mental Status- Oriented to own ability (0 pts). Total House Fall Scale indicates High Risk Score (45 or more points). Fall prevention measures have been instituted. Side Rails Up X 2 Placed Close to Nursing Station 1:1 Attendant Assigned Frequent Obs/Assessments Occuring As available patient and family educated on Fall Prevention Program and Strategies. Assessment: 14:32 General: See triage assessment. rb3 15:30 Reassessment: Patient appears in no apparent distress at this time. No changes from rb3 previously documented assessment. Patient is alert, oriented x 3, equal unlabored respirations, skin warm/dry/pink. 16:30 Reassessment: Patient appears in no apparent distress at this time. No changes from rb3 previously documented assessment. Neuro: Level of Consciousness is awake, alert, obeys commands, Oriented to person, place, time, situation, Speech is normal, Facial symmetry appears normal. 17:30 Reassessment: Patient appears in no apparent distress at this time. No changes from rb3 previously documented assessment. 18:19 Reassessment: Educated the pt. on Plavix and it's side effects. Printed information on rb3 Plavix and it's side effects and gave it to the pt. to take home. Vital Signs: 14:32 BP 157 / 90; Pulse 79; Resp 16; Temp 97.8; Pulse Ox 100% ; Weight 65.77 kg; Height 5 rb3 ft. 3 in. (160.02 cm); Pain 0/10; 15:33 BP 156 / 77; Pulse 79; Resp 15; Pulse Ox 97% ; Pain 0/10; rb3 16:33 BP 159 / 75; Pulse 95; Resp 19; Pulse Ox 99% ; rb3 17:30 BP 172 / 85; Pulse 102; Resp 16; Pulse Ox 97% ; rb3 18:05 BP 160 / 76; Pulse 92; Resp 16; Pulse Ox 98% ; rb3 14:32 Body Mass Index 25.69 (65.77 kg, 160.02 cm) rb3 ED Course: 14:32 Arm band placed on right wrist. rb3 14:32 Patient has correct armband on for positive identification. Bed in low position. Call rb3 light in reach. Side rails up X2. gambling monitor on. Pulse ox on. NIBP on. 14:42 Patient arrived in ED. em1 14:44 Ellie Allen, RN is Primary Nurse. rb3 14:47 Jabier Godwin PA is PHCP. jmm 14:47 Odell Garibay MD is Attending Physician. m 14:51 Triage completed. rb3 15:00 EKG done, by ED staff, reviewed by Odell Garibay MD. kj1 15:08 Initial lab(s) drawn, by ok, sent to lab. kj1 15:08 Inserted saline lock: 20 gauge in left antecubital area, using aseptic technique. Blood kj1 collected. 15:25 XRAY Chest (1 view) In Process Unspecified. EDMS 15:44 CT Head Brain wo Cont In Process Unspecified. EDMS 17:22 Giorgi Zavaleta MD is Referral Physician. jmm 18:20 No provider procedures requiring assistance completed. IV discontinued, intact, rb3 bleeding controlled, No redness/swelling at site. Pressure dressing applied. Administered Medications: No medications were administered Outcome: 17:22 Discharge ordered by . sarah 18:20 Discharged to home via wheelchair. rb3 18:20 Condition: stable 18:20 Discharge instructions given to patient, Instructed on discharge instructions, follow up and referral plans. Demonstrated understanding of instructions, follow-up care, Prescriptions given X none 18:21 Patient left the ED. rb3 Signatures: Dispatcher [employer] EDMS Jabier Godwin PA PA jmm Martinez, Eric em1 Trista Méndez kj1 Ellie Allen, RN RN rb3 Corrections: (The following items were deleted from the chart) 15:14 15:13 Initial lab(s) drawn, by me, sent to lab. kj1 kj1 15:14 15:13 Inserted saline lock: 20 gauge in left antecubital area, using aseptic technique. kj1 Blood collected. kj1
--- NOTE | 2020-03-27 17:23 | EDPHYS ---
Physician Documentation [facility] Name: Hazel Morgan Age: 69 yrs Sex: Female : 1950 Arrival Date: 03/27/2020 Time: 14:42 Bed 23 Private MD: ED Physician Odell Garibay HPI: 03/27 15:12 This 69 yrs old Female presents to ER via EMS with complaints of Dizziness, jmm General Weakness. 15:12 The patient presents with lightheadedness. Onset: The symptoms/episode began/occurred jmm gradually, 1 day(s) ago. Modifying factors: The symptoms are alleviated by nothing, the symptoms are aggravated by nothing. Associated signs and symptoms: Pertinent negatives: abdominal pain, chest pain, shortness of breath. This is a 69 year old female with a recent CVA that presents to the ED with complaints of lightheadedness beginning yesterday. Patient denies focal weakness but states she does not feel herself. Patient was initiated on atorvastatin and plavix this past Tuesday. . Historical: - Allergies: 14:32 No Known Allergies; rb3 - Home Meds: 14:32 Zyrtec 10 mg Oral tab 1 tab once daily [Active]; hydroxyzine HCl 25 mg Oral tab 2 tab rb3 nightly [Active]; Famotidine Oral once daily [Active]; amlodipine 5 mg tab 1 tab once daily [Active]; atorvastatin 40 mg oral tab 1 tab once daily [Active]; folic acid 1 mg Oral tab 1 tab once daily [Active]; Plavix 75 mg Oral tab 1 tab once daily [Active]; aspirin 81 mg Oral chew 1 tab once daily [Active]; - PMHx: 14:32 CIU; Hypertension; rb3 - PSHx: 14:32 Cholecystectomy; Hysterectomy; Detached retina; arm fx; rb3 - Immunization history:: Adult Immunizations up to date. - Social history:: Smoking status: Patient/guardian denies using. ROS: 15:12 Cardiovascular: Negative for chest pain, palpitations, and edema, Respiratory: Negative jmm for shortness of breath, cough, wheezing, and pleuritic chest pain. 15:12 Constitutional: Positive for fatigue. 15:12 Neuro: Positive for lightheadedness. 15:12 All other systems are negative. Exam: 15:12 Constitutional: This is a well developed, well nourished patient who is awake, alert, jmm and in no acute distress. Head/Face: atraumatic. Eyes: EOMI, no conjunctival erythema appreciated ENT: Moist Mucus Membranes Neck: Trachea midline, Supple Chest/axilla: Normal chest wall appearance and motion. Cardiovascular: Regular rate and rhythm. No edema appreciated Respiratory: Normal respirations, no respiratory distress appreciated Abdomen/GI: Non distended, soft Back: Normal ROM Skin: General appearance color normal MS/ Extremity: Moves all extremities, no obvious deformities appreciated, no edema noted to the lower extremities Neuro: Awake and alert, normal gait Psych: Behavior is normal, Mood is normal, Patient is cooperative and pleasant Vital Signs: 14:32 BP 157 / 90; Pulse 79; Resp 16; Temp 97.8; Pulse Ox 100% ; Weight 65.77 kg; Height 5 rb3 ft. 3 in. (160.02 cm); Pain 0/10; 15:33 BP 156 / 77; Pulse 79; Resp 15; Pulse Ox 97% ; Pain 0/10; rb3 16:33 BP 159 / 75; Pulse 95; Resp 19; Pulse Ox 99% ; rb3 17:30 BP 172 / 85; Pulse 102; Resp 16; Pulse Ox 97% ; rb3 18:05 BP 160 / 76; Pulse 92; Resp 16; Pulse Ox 98% ; rb3 14:32 Body Mass Index 25.69 (65.77 kg, 160.02 cm) rb3 MDM: 14:52 Patient medically screened. [facility] 17:20 Data reviewed: vital signs, nurses notes, lab test result(s), EKG, radiologic studies, [facility] CT scan, plain films. Counseling: I had a detailed discussion with the patient and/or guardian regarding: the historical points, exam findings, and any diagnostic results supporting the discharge/admit diagnosis, lab results, radiology results, the need for outpatient follow up, to return to the emergency department if symptoms worsen or persist or if there are any questions or concerns that arise at home. ED course: I discussed the patient with Dr. Zavaleta whom recommended following up with him in clinic. Most likely needs PT. Patient has some concerns on what to expect after CVA and appears anxious. I discussed return precautions with the patient. Patient understood and agrees with the plan of care. . 03/27 15:01 Order name: Basic Metabolic Panel; Complete Time: 16:21 [facility] 03/27 15:01 Order name: CBC with Diff; Complete Time: 15:39 [facility] 03/27 15:01 Order name: LFT's; Complete Time: 16:21 [facility] 03/27 15:01 Order name: Magnesium; Complete Time: 16:21 [facility] 03/27 15:01 Order name: NT PRO-BNP; Complete Time: 16:21 [facility] 03/27 15:01 Order name: PT-INR; Complete Time: 15:39 [facility] 03/27 15:01 Order name: Troponin (emerg Dept Use Only); Complete Time: 16:21 [facility] 03/27 15:01 Order name: XRAY Chest (1 view); Complete Time: 15:41 [facility] 03/27 15:01 Order name: EKG; Complete Time: 15:02 [facility] 03/27 15:01 Order name: Cardiac monitoring; Complete Time: 15:03 [facility] 03/27 15:01 Order name: EKG - Nurse/Tech; Complete Time: 15:03 [facility] 03/27 15:04 Order name: CT Head Brain wo Cont; Complete Time: 15:56 [facility] 03/27 17:01 Order name: Urine Dipstick--Ancillary (enter results); Complete Time: 17:19 [facility] 03/27 15:01 Order name: IV Saline Lock; Complete Time: 15:33 [facility] 03/27 15:01 Order name: Labs collected and sent; Complete Time: 15:33 [facility] 03/27 15:01 Order name: O2 Per Protocol; Complete Time: 15:31 [facility] 03/27 15:01 Order name: O2 Sat Monitoring; Complete Time: 15:31 [facility] 03/27 15:40 Order name: Urine Dipstick-Ancillary (obtain specimen); Complete Time: 16:57 jm Administered Medications: No medications were administered Disposition: 03/28 06:56 Co-signature as Attending Physician, Odell Garibay MD I agree with the assessment and kdr plan of care. Disposition: 03/27/20 17:22 Discharged to Home. Impression: Dizziness and giddiness. - Condition is Stable. - Discharge Instructions: Dizziness. - Medication Reconciliation Form, Thank You Letter, Antibiotic Education, Prescription Opioid Use form. - Follow up: Giorgi Zavaleta MD; When: 2 - 3 days; Reason: Recheck today's complaints, Continuance of care, Re-evaluation by your physician. - Notes: Please call Dr. Zavaleta's office on Tuesday for close follow up due to 2 ER visits and an admission for stroke. Please return to the ER if you develop chest pain, shortness of breath, increased weakness or any other concerning symptoms. Signatures: Dispatcher [employer] EDPA Odell Garibay MD MD kdr Mickail, Joel, PA PA jmm Barber, Rebecca, RN RN rb3 Corrections: (The following items were deleted from the chart) 03/27 17:24 15:57 Brain Wo Cont+MRI.RAD.BRZ ordered. [facility] 18:21 17:22 03/27/2020 17:22 Discharged to Home. Impression: Dizziness and giddiness. rb3 Condition is Stable. Forms are Medication Reconciliation Form, Thank You Letter, Antibiotic Education, Prescription Opioid Use. Follow up: Giorgi Zavaleta; When: 2 - 3 days; Reason: Recheck today's complaints, Continuance of care, Re-evaluation by your physician. sarah
[2020-03-27 22:11] VITALS: TEMP 97.8
[2020-03-27 22:14] VITALS: BP 160/76; O2SAT 98
--- NOTE | 2020-03-28 07:54 | EKG ---
Test Date: 2020-03-27 Test Time: 14:45:00 Cartographic Engineer: FOREIGN MEASUREMENT RESULTS: Intervals: Rate: 77 ME: 166 QRSD: 72 QT: 372 QTc: 420 [place]: P: 47 ME: 166 QRS: 0 T: 62 INTERPRETIVE STATEMENTS: Normal sinus rhythm Normal ECG Compared to ECG 03/19/2020 18:42:09 No significant changes Electronically Signed On 03-28-20 07:49:48 SLAB MILLER OPERATOR by Ken Alvarenga
== END 2020-03-27 18:21 | disposition home or self-care (01) ==
LOC: ER 14:29
DX: R42 Dizziness and giddiness (principal); I10 Essential (primary) hypertension; Z86.73 Personal history of transient ischemic attack (TIA), and cerebral infarction without residual deficits
CPT/HCPCS: 36415; 70450; 71045; 80048; 80076; 81003; 83735; 83880; 84484; 85025; 85610; 93005; 99285

== ENCOUNTER 2020-10-20 07:26 | Day surgery (SDC) | payer OTHER ==
[2020-10-17 16:18] LABS: Absolute Lymphocytes (CBC) 0.9 K/uL (0.7-4.9); Basophils % 1.4 % (0-1.3); Hematocrit 36.5 % (36.0-45.0); Lymphocytes % 17.4 % (15.3-44.8); MPV 7.5 fL (7.6-11.3); RBC Red Blood Cell Count 4.29 M/uL (3.86-4.86)
--- NOTE | 2020-10-17 16:24 | RAD REPORT ---
EXAM DESCRIPTION: Rudy Adan And Leonel (2 Views)10/17/2020 4:20 pm CLINICAL HISTORY: Preop for hernia repair/hypertension COMPARISON: February 2020 FINDINGS: The lungs appear clear of acute infiltrate. The heart is normal size IMPRESSION: No acute abnormalities displayed
[2020-10-20] MEDS ORDERED: HYDROCORTISONE SUC 100 MG INJ ONE (08:09)
[2020-10-20] MEDS ORDERED: Ringers Lactate 1,000 ML IV ONE ×2 (08:21→09:19)
[2020-10-20] MEDS ORDERED: propofoL 200 MG/20 ML VIAL IV ONE (08:37)
[2020-10-20] MEDS ORDERED: FENTANYL CITR 100 MCG/2 ML ONE (08:37)
[2020-10-20] MEDS ORDERED: KETOROLAC 30 MG/ML INJ ONE (08:38)
[2020-10-20] MEDS ORDERED: MIDAZOLAM HCL 2 MG/2 ML INJ ONE (08:38)
[2020-10-20] MEDS ORDERED: ROCURONIUM 50 MG/5 ML VIAL IV ONE (08:38)
[2020-10-20] MEDS ORDERED: dexAMETHasone 10 MG/ML VIAL ONE (08:38)
[2020-10-20] MEDS ORDERED: ONDANSETRON 4 MG/2 ML VIAL ONE (08:38)
[2020-10-20] MEDS ORDERED: BUPIVACAINE 0.5% PF 10 ML VIAL ONE (08:38)
[2020-10-20] MEDS ORDERED: LIDOCAINE 2% MPF 5 ML VIAL ONE (08:38)
[2020-10-20] MEDS ORDERED: CEFAZOLIN/SWI 1gm 1 GM/10 ML SYR ONE (08:51)
--- NOTE | 2020-10-20 09:15 | P.BOP ---
Preoperative diagnosis: incarcerated right inguinal hernia Postoperative diagnosis: same Primary procedure: Open repair of incarcerated right inguinal hernia with mesh [employer] Superintendent: eC Wall) Estimated blood loss: <10cc Specimen: none Findings: incarcerated right inguinal hernia Anesthesia: General Complications: None Implants: medium mesh and plug Transferred to: Recovery Room Condition: Good
[2020-10-20 09:45] VITALS: TEMP 97.1
[2020-10-20] MEDS ORDERED: CODEINE 30MG/APAP 300MG TAB ONE (10:47)
[2020-10-20 11:30] VITALS: BP 142/75; O2SAT 97
--- NOTE | 2020-10-22 19:44 | DS ---
Date of Discharge: 10/20/2020 Diagnosis: Incarcerated right inguinal hernia. Procedure: Open repair of incarcerated right inguinal hernia with mesh. Disposition: Home. Activity: As tolerated. No heavy lifting. Plan: Follow up in my office in 1 week. Call for appointment at [phone]. Keep area dry for 48 jai rs, then may shower. Cold compress to the right inguinal region for 24 hours. Medications: See orders. POLA/TIMUR Voice ID: [id number] Report ID: [id number]
--- NOTE | 2020-10-22 19:44 | OP ---
Date of Procedure: 10/20/2020 Surgeon: Dionicio Watson MD [employer] Mounter: MARSHA Fragoso. Preoperative Diagnosis: Incarcerated right inguinal hernia. Postoperative Diagnosis: Incarcerated right inguinal hernia. Procedure: Open repair of incarcerated right inguinal hernia with mesh. Estimated Blood Loss: Less than 10 mL. Specimen: None. Findings: Incarcerated right inguinal hernia. Anesthesia: General plus local. Implant: Medium mesh, plug and sheath. Indication: This is the case of a female, who comes to us with above diagnosis. Fully explained the benefits, alternatives, and risks of repair of incarcerated right inguinal hernia with mesh, which i nclude, but not limited to infection, bleeding, damage to adjacent structures, anesthesia complicatio n, recurrence, chronic pain, chronic numbness, MD, and even . She also understands this may not relieve any symptoms. She might need more than one surgical intervention. She understood, signed a consent. Procedure In Detail: The patient was brought to the operating room, placed in supine position. Anes thesia was done without complication. The inguinal and abdominal area were prepped and draped in usu al sterile fashion. A time-out was called. Local anesthesia was applied followed by sharp incision of the skin in the right inguinal region. Incision was carried down to Jeanna fascia until we find e xternal oblique aponeurosis and we opened that in direction of the fibers. We identified the ilioing uinal nerve and iliohypogastric nerve, protected that behind external oblique aponeurosis, identified direct hernia present. Dissected free, incarcerated omentum carefully reduced. The hernia sac was then reduced and imbricated. We proceeded to imbricate the area with the help of 2-0 Prolene. We se lected a medium plug, placed in the defect, secured in place with VersaTack and a mesh sheet placed o n the inguinal canal securing that to the pubic tubercle and shelving edge of inguinal ligament and t ransversalis fascia. The area was irrigated. No bleeding. At that moment, I proceeded to bring the ilioinguinal nerve and iliohypogastric nerve back into the inguinal canal, reconstructed the area by closing the external oblique aponeurosis making sure the nerves were not included. The area was irr igated. The Jeanna fascia closed with 3-0 chromic and the skin with nathan. Sponge count and instr ument counts correct. The patient tolerated the procedure well. The patient was sent to recovery in stable condition. POLA/TIMUR Voice ID: [id number] Report ID: [id number]
== END 2020-10-20 11:08 | disposition home or self-care (01) ==
LOC: OR 07:26
PROVIDERS: ATTEND Surgery
PROC: 0YU50JZ Supplement Right Inguinal Region with Synthetic Substitute, Open Approach (ICD-10-PCS; principal; 2020-10-20 08:30)
DX: K40.30 Unilateral inguinal hernia, with obstruction, without gangrene, not specified as recurrent (principal); Z20.822 Contact with and (suspected) exposure to COVID-19; I10 Essential (primary) hypertension
CPT/HCPCS: 93005; 85025; 80048; 36415; 71046; 49507; U0003; J2704; J3010; J1100; J0690; J7120 ×2; J1720; J2405; J2250

== ENCOUNTER 2021-01-04 10:40 | Observation (INO) | payer OTHER ==
[2021-01-04 11:07] LABS: Hematocrit 37.6 % (36.0-45.0); Lymphocytes % 17.2 % (15.3-44.8); RBC Red Blood Cell Count 4.25 M/uL (3.86-4.86)
[2021-01-04 11:10] LABS: Protime INR 1.09
[2021-01-04 11:26] LABS: ALT/SGPT 40 U/L (12-78); AST/SGOT 24 U/L (15-37); Albumin 3.5 g/dL (3.4-5.0); Alkaline Phosphatase 62 U/L (45-117); BUN Blood Urea Nitrogen 17 mg/dL (7-18); Bicarbonate 23 mmol/L (21-32); Bilirubin Direct 0.1 mg/dL (0-0.2); Bilirubin Total 0.4 mg/dL (0.2-1.0); Glucose Level 102 mg/dL (74-106); Magnesium 2.1 mg/dL (1.8-2.4); NT PRO-BNP 315 pg/mL (<125); Potassium 4.1 mmol/L (3.5-5.1); Protein, Total 6.8 g/dL (6.4-8.2); Sodium Level 143 mmol/L (136-145); Troponin (Emerg Dept Use Only) < 0.02 ng/mL (0.0-0.045)
--- NOTE | 2021-01-04 11:42 | RAD REPORT ---
EXAM DESCRIPTION: CT - Head Brain Wo Cont - 01/04/2021 11:04 am CLINICAL HISTORY: Syncope COMPARISON: February 2020 TECHNIQUE: Computed axial tomography of the head was obtained. IV contrast was not requested. All CT scans are performed using dose optimization technique as appropriate and may include automated exposure control or mA/KV adjustment according to patient size. FINDINGS: An intracranial bleed is not seen . The ventricles are normal in caliber. No extra-axial fluid collection is noted. Fluid within the sinuses/ mastoids is not seen. IMPRESSION: No acute intracranial abnormality is seen. If patient's symptoms persist MRI of the bra in would be recommended.
--- NOTE | 2021-01-04 12:12 | RAD REPORT ---
EXAM DESCRIPTION: Rudy Single View01/04/2021 11:16 am CLINICAL HISTORY: Syncope COMPARISON: September 2020 FINDINGS: The lungs appear clear of acute infiltrate. The heart is normal size IMPRESSION: No acute abnormalities displayed
--- NOTE | 2021-01-04 12:33 | ER ---
Nurse's Notes [facility] Name: Hazel Morgan Age: 70 yrs Sex: Female : 1950 Arrival Date: 01/04/2021 Time: 10:41 Bed 7 Private MD: Diagnosis: Syncope Near;Muscle weakness (generalized) Presentation: 01/04 10:56 Chief complaint: EMS states: "pt was [facility] when she reported feeling hot, dizzy, jd3 and nauseous. pt had a syncope episode. pt was awake when we arrived but systolic BP was 54. she was placed in Trendelenburg and 18 G IV to the left AC was started and 500 ml NS was give. pt as been A\\T\\O X 4. systolic came up to 130's. 12 lead looked good and BGL was 92. 4 mg of Zofran given for nausea.". Coronavirus screen: At this time, the client does not indicate any symptoms associated with coronavirus-19. Ebola Screen: Patient negative for fever greater than or equal to 101.5 degrees Fahrenheit, and additional compatible Ebola Virus Disease symptoms. Initial Sepsis Screen: Does the patient meet any 2 criteria? No. Patient's initial sepsis screen is negative. Does the patient have a suspected source of infection? No. Patient's initial sepsis screen is negative. Risk Assessment: Do you want to hurt yourself or someone else? Patient reports no desire to harm self or others. Onset of symptoms was January 04, 2021. Care prior to arrival: Medication(s) given: Normal saline infusion, 500 mL, zofran 4 mg, IV initiated. 18 GA, in the left antecubital area, Glucose check: 92. 10:56 Method Of Arrival: EMS: [facility] jd3 10:56 Acuity: ROSE 2 jd3 Historical: - Allergies: 11: No Known Allergies; jd3 - Home Meds: 11:01 Plavix 75 mg Oral tab 1 tab once daily [Active]; amlodipine 5 mg tab 1 tab once daily jd3 [Active]; aspirin 81 mg Oral chew 1 tab once daily [Active]; atorvastatin 40 mg Oral tab 1 tab once daily [Active]; Famotidine Oral once daily [Active]; folic acid 1 mg Oral tab 1 tab once daily [Active]; hydroxyzine HCl 25 mg Oral tab 2 tab nightly [Active]; zolar IM Q2 weeks [Active]; Zyrtec 10 mg Oral tab 1 tab once daily [Active]; - PMHx: 11:01 CIU; Hypertension; CVA; jd3 - Immunization history:: Adult Immunizations up to date, Client reports receiving the 2nd dose of the Covid vaccine. - Social history:: Smoking status: Patient denies any tobacco usage or history of. Screenin:05 Abuse screen: Denies threats or abuse. Nutritional screening: No deficits noted. jd3 Tuberculosis screening: No symptoms or risk factors identified. Fall Risk Ambulatory Aid- None/Bed Rest/Nurse Assist (0 pts). Gait- Normal/Bed Rest/Wheelchair (0 pts) Mental Status- Oriented to own ability (0 pts). Total House Fall Scale indicates No Risk (0-24 pts). Assessment: 11:03 General: Appears uncomfortable, Behavior is calm, cooperative, appropriate for age, jd3 Reports fatigue for >3 days. Pain: Denies pain. Neuro: Level of Consciousness is awake, alert, obeys commands, Oriented to person, place, time, situation, Reports dizziness, a syncopal episode weakness generalized. Cardiovascular: Denies chest pain, Capillary refill < 3 seconds Patient's skin is warm and dry. Rhythm is regular. Respiratory: Airway is patent Respiratory effort is even, unlabored, Respiratory pattern is regular, symmetrical, Denies cough, shortness of breath. GI: Reports nausea, Patient currently denies abdominal pain. : No signs and/or symptoms were reported regarding the genitourinary system. EENT: No signs and/or symptoms were reported regarding the EENT system. Derm: Skin is intact, Skin is dry, Skin is normal, Skin temperature is warm. Musculoskeletal: Circulation, motion, and sensation intact. Range of motion: intact in all extremities. 11:40 Reassessment: No changes from previously documented assessment. Patient and/or family jd3 updated on plan of care and expected duration. Pain level reassessed. Patient is alert, oriented x 3, equal unlabored respirations, skin warm/dry/pink. 13:23 Reassessment: No changes from previously documented assessment. Patient and/or family jd3 updated on plan of care and expected duration. Pain level reassessed. Patient is alert, oriented x 3, equal unlabored respirations, skin warm/dry/pink. Vital Signs: 11:02 BP 139 / 71; Pulse 71; Resp 18 S; Temp 98.5(O); Pulse Ox 99% on R/A; Weight 57.15 kg jd3 (R); Height 5 ft. 3 in. (160.02 cm) (R); Pain 0/10; 11:40 BP 136 / 76; Pulse 72; Resp 17 S; Pulse Ox 100% on R/A; jd3 13:23 BP 127 / 60; Pulse 74; Resp 14 S; Pulse Ox 100% on R/A; jd3 11:02 Body Mass Index 22.32 (57.15 kg, 160.02 cm) jd3 ED Course: 10:41 Patient arrived in ED. ds1 10:42 Ezequiel Mejia MD is Attending Physician. sp3 10:56 Jesus Medina, PIERRE is Primary Nurse. jd3 11:00 Inserted saline lock: 18 gauge in left antecubital area, using aseptic technique. Blood kj1 collected. Inserted. 11:00 EKG done, by ED staff, reviewed by Ezequiel Mejia MD. kj1 11:01 Triage completed. jd3 11:03 CT Head Brain wo Cont In Process Unspecified. EDMS 11:03 Arm band placed on. EKG completed in triage. Results shown to MD. jd3 11:03 Initial lab(s) drawn, by me, sent to lab. kj1 11:05 Patient has correct armband on for positive identification. Placed in gown. Bed in low jd3 position. Call light in reach. Side rails up X2. Adult w/ patient. monitoring tech on. Pulse ox on. NIBP on. 11:16 XRAY Chest (1 view) In Process Unspecified. EDMS 12:32 Mora Rao MD is Hospitalizing Provider. sp3 13:38 No provider procedures requiring assistance completed. Patient admitted, IV remains in jl7 place. intact, No redness/swelling at site. Administered Medications: 13:19 Drug: Zofran (Ondansetron) 4 mg Route: IVP; Site: left antecubital; jl7 13:54 Follow up: Response: No adverse reaction jd3 13:19 Drug: NS 0.9% 500 ml Route: IV; Rate: bolus; Site: left antecubital; jl7 13:55 Follow up: Response: No adverse reaction; IV Status: Completed infusion; IV Intake: jd3 500ml Intake: 13:55 IV: 500ml; Total: 500ml. jd3 Outcome: 12:32 Decision to Hospitalize by Provider. sp3 13:53 Admitted to Med/surg accompanied by tech, via stretcher, room 228, with chart. jd3 13:53 Condition: stable 13:53 Instructed on the need for admit, Demonstrated understanding of instructions. 14:11 Patient left the ED. jl7 Signatures: Dispatcher [employer] EDDC Ruby Nuñez dsBryan Wheatley RN RN jl7 Jesus eMdina RN RN [email or web address] Trista Méndez kj1 Ezequiel Mejia MD MD sp3
--- NOTE | 2021-01-04 12:33 | EDPHYS ---
Physician Documentation [facility] Name: Hazel Morgan Age: 70 yrs Sex: Female : 1950 Arrival Date: 01/04/2021 Time: 10:41 Bed 7 Private MD: ED Physician Ezequiel Mejia HPI: 01/04 10:55 This 70 yrs old Female presents to ER via EMS with complaints of syncope. sp3 10:55 1-year-old female with a history of CVA, hypertension on aspirin and Plavix who sp3 presents via EMS for a syncopal episode that occurred just prior to arrival while patient was in [facility]. Patient states that she was sitting on a chair and then suddenly got hot and weak and per her she slumped over in the chair after which she slowly came to after a few seconds and was given a little bit of water while EMS was activated. Patient did not have any trauma or fall or head injury. Patient denies any other symptoms including current headache, neck pain, shortness of breath, chest pain, back pain, abdominal pain, vomiting, diarrhea, new focal weakness, altered sensation, memory loss, any other symptoms at this time. Patient does state that she has had a headache off and on for the last week and is also currently nauseated.. Historical: - Allergies: 11:01 No Known Allergies; jd3 - Home Meds: 11:01 Plavix 75 mg Oral tab 1 tab once daily [Active]; amlodipine 5 mg tab 1 tab once daily jd3 [Active]; aspirin 81 mg Oral chew 1 tab once daily [Active]; atorvastatin 40 mg Oral tab 1 tab once daily [Active]; Famotidine Oral once daily [Active]; folic acid 1 mg Oral tab 1 tab once daily [Active]; hydroxyzine HCl 25 mg Oral tab 2 tab nightly [Active]; zolar IM Q2 weeks [Active]; Zyrtec 10 mg Oral tab 1 tab once daily [Active]; - PMHx: 11:01 CIU; Hypertension; CVA; jd3 - Immunization history:: Adult Immunizations up to date, Client reports receiving the 2nd dose of the Covid vaccine. - Social history:: Smoking status: Patient denies any tobacco usage or history of. ROS: 10:56 Constitutional: Negative for fever, chills, and weight loss, Eyes: Negative for injury, sp3 pain, redness, and discharge, ENT: Negative for injury, pain, and discharge, Neck: Negative for injury, pain, and swelling, Cardiovascular: Negative for chest pain, palpitations, and edema, Respiratory: Negative for shortness of breath, cough, wheezing, and pleuritic chest pain, Abdomen/GI: Negative for abdominal pain vomiting, diarrhea, and constipation, Back: Negative for injury and pain, Psych: Negative for depression, anxiety, suicide ideation, homicidal ideation, and hallucinations, Allergy/Immunology: Negative for hives, rash, and allergies, Endocrine: Negative for neck swelling, polydipsia, polyuria, polyphagia, and marked weight changes. 10:56 All other systems are negative. Exam: 10:57 Constitutional: This is a well developed, well nourished patient who is awake, alert, sp3 and in no acute distress. Head/Face: Normocephalic, atraumatic. Eyes: Pupils equal round and reactive to light, extra-ocular motions intact. Lids and lashes normal. Conjunctiva and sclera are non-icteric and not injected. Cornea within normal limits. Periorbital areas with no swelling, redness, or edema. ENT: Nares patent. No nasal discharge, no septal abnormalities noted. External auditory canals are clear. Oropharynx with no redness, swelling, or masses, exudates, or evidence of obstruction, uvula midline. Mucous membranes moist. Neck: Trachea midline, no thyromegaly or masses palpated, and no cervical lymphadenopathy. Supple, full range of motion without nuchal rigidity, or vertebral point tenderness. No Meningismus. Chest/axilla: Normal chest wall appearance and motion. Nontender with no deformity. No lesions are appreciated. Cardiovascular: Regular rate and rhythm with a normal S1 and S2. No gallops, murmurs, or rubs. Normal PMI, no JVD. No pulse deficits. Respiratory: Lungs have equal breath sounds bilaterally, clear to auscultation and percussion. No rales, rhonchi or wheezes noted. No increased work of breathing, no retractions or nasal flaring. Abdomen/GI: Soft, non-tender, with normal bowel sounds. No distension or tympany. No guarding or rebound. No evidence of tenderness throughout. Back: No spinal tenderness. No costovertebral tenderness. Full range of motion. Skin: Warm, dry with normal turgor. Normal color with no rashes, no lesions, and no evidence of cellulitis. MS/ Extremity: Pulses equal, no cyanosis. Neurovascular intact. Full, normal range of motion. Psych: Awake, alert, with orientation to person, place and time. Behavior, mood, and affect are within normal limits. 10:57 Neuro: Patient has chronic left-sided deficits particular in the upper extremity from a motor and strength standpoint. Currently patient has equal strength in the lower extremities and 4 out of 5 strength on the left upper and normal on the right upper. Patient can make an okay sign with both hands. There is no facial droop, or weakness, or any other deficit. Memory and cognition are intact. Cranial nerves II through XII are intact. Pupils equal round reactive to light and extraocular movements are intact. Proprioception and [id number] are normal on the right side.. Vital Signs: 11:02 BP 139 / 71; Pulse 71; Resp 18 S; Temp 98.5(O); Pulse Ox 99% on R/A; Weight 57.15 kg jd3 (R); Height 5 ft. 3 in. (160.02 cm) (R); Pain 0/10; 11:40 BP 136 / 76; Pulse 72; Resp 17 S; Pulse Ox 100% on R/A; jd3 13:23 BP 127 / 60; Pulse 74; Resp 14 S; Pulse Ox 100% on R/A; jd3 11:02 Body Mass Index 22.32 (57.15 kg, 160.02 cm) jd3 MDM: 10:42 Patient medically screened. sp3 10:58 Data reviewed: vital signs, nurses notes. ED course: 70-year-old female with a syncopal sp3 episode. Given her prior history of CVA, we will obtain a CT scan of the head and a cardiac work-up including laboratory values, EKG, chest x-ray. The patient is improved we will consider discharge with neuro appointment follow-up otherwise if patient still feels weak will admit for 23-hour observation. Initial blood pressure by EMS was "54". However after 500 cc of normal saline the pressure was systolically 120. I am not sure of the initial blood pressure of 54 however it likely was lower which caused her syncopal episode.. 12:29 ED course: She states that she still feels weak and she felt this way when she last had sp3 a stroke. We will go ahead and observe patient and get MRI and consult neurology. Serial markers as well.. 01/04 10:43 Order name: Basic Metabolic Panel; Complete Time: 12:21 sp3 01/04 10:43 Order name: CBC with Diff; Complete Time: 12:21 sp3 01/04 10:43 Order name: LFT's; Complete Time: 12:21 sp3 01/04 10:43 Order name: Magnesium; Complete Time: 12:21 sp3 01/04 10:43 Order name: NT PRO-BNP; Complete Time: 12:21 sp3 01/04 10:43 Order name: PT-INR; Complete Time: 12:21 sp3 01/04 10:43 Order name: Troponin (emerg Dept Use Only); Complete Time: 12:21 sp3 01/04 11:08 Order name: SARS-COV-2 RT PCR (Document "Date of Onset" if Symptomatic); Complete Time: eb 12:21 01/04 13:16 Order name: Comprehensive Metabolic Panel EDMS 01/04 13:16 Order name: Comprehensive Metabolic Panel EDMS 01/04 13:16 Order name: Lipid Profile EDMS 01/04 13:16 Order name: Lipid Profile EDMS 01/04 13:16 Order name: Magnesium EDMS 01/04 13:16 Order name: Magnesium EDMS 01/04 10:43 Order name: XRAY Chest (1 view); Complete Time: 12:21 sp3 01/04 10:43 Order name: EKG; Complete Time: 10:44 sp3 01/04 10:43 Order name: CT Head Brain wo Cont; Complete Time: 12:21 sp3 01/04 13:16 Order name: Physical Therapy Consult EDMS 01/04 13:16 Order name: Phosphorus EDMS 01/04 13:16 Order name: Phosphorus EDMS 01/04 13:16 Order name: Troponin I EDMS 01/04 13:16 Order name: Troponin I EDMS 01/04 13:17 Order name: Echo with Doppler EDMS 01/04 13:17 Order name: EKG Electrocardiogram EDMS 01/04 13:17 Order name: CBC with Automated Diff EDMS 01/04 13:17 Order name: CBC with Automated Diff EDMS 01/04 13:17 Order name: Stroke Protocol EDMS 01/04 10:43 Order name: Cardiac monitoring; Complete Time: 11:38 sp3 01/04 10:43 Order name: EKG - Nurse/Tech; Complete Time: 11:02 sp3 01/04 10:43 Order name: IV Saline Lock; Complete Time: 11:02 sp3 01/04 10:43 Order name: Labs collected and sent; Complete Time: 11:02 sp3 01/04 10:43 Order name: O2 Per Protocol; Complete Time: 11:39 sp3 01/04 10:43 Order name: O2 Sat Monitoring; Complete Time: 11:39 sp3 01/04 13:17 Order name: Speech Therapy Consult EDMS Administered Medications: 13:19 Drug: Zofran (Ondansetron) 4 mg Route: IVP; Site: left antecubital; jl7 13:54 Follow up: Response: No adverse reaction jd3 13:19 Drug: NS 0.9% 500 ml Route: IV; Rate: bolus; Site: left antecubital; jl7 13:55 Follow up: Response: No adverse reaction; IV Status: Completed infusion; IV Intake: jd3 500ml Disposition Summary: 01/04/21 12:32 Hospitalization Ordered Hospitalization Status: Observation sp3 Provider: Mora Rao sp3 Location: Telemetry/MedSur (observation) sp3 Condition: Stable sp3 Problem: an acute exacerbation sp3 Symptoms: are unchanged sp3 Bed/Room Type: Standard sp3 Room Assignment: 228(01/04/21 13:29) Diagnosis - Syncope Near sp3 - Muscle weakness (generalized) sp3 Forms: - Medication Reconciliation Form sp3 - SBAR form sp3 Signatures: Dispatcher [employer] EDMS Carmelina Waterman RN RN dw Leal, Jahala, RN RN jl7 Jesus Medina RN RN jd3 Ezequiel Mejia MD MD sp3 Corrections: (The following items were deleted from the chart) 13:20 13:18 Chest Pa And Lat (2 Views) ordered. EDHI EDMS 13:29 12:32 sp3 dw
[2021-01-04] MEDS ORDERED: ACETAMINOPHEN 500 MG TAB PO PRN (13:10)
[2021-01-04] MEDS ORDERED: ONDANSETRON 4 MG/2 ML VIAL IV PRN (13:10)
[2021-01-04] MEDS ORDERED: ONDANSETRON 4 MG/2 ML VIAL ONE (13:15)
[2021-01-04] MEDS ORDERED: NA CHLORIDE 0.9% 500 ML ONE (13:15)
[2021-01-04 15:06] VITALS: BMI 22.3
[2021-01-04] MEDS: NA CHLORIDE 0.9% 1,000 ML IV SCH (15:06)
[2021-01-04] MEDS ORDERED: ATORVASTATIN 80 MG TAB PO SCH (21:00)
--- NOTE | 2021-01-05 00:38 | P.HP ---
Certification for Inpatient Patient admitted to: Observation With expected LOS: <2 Midnights Patient will require the following post-hospital care: None Practitioner: I am a practitioner with admitting privileges, knowledge of patient current condition, hospital course, and medical plan of care. Services: Services provided to patient in accordance with Admission requirements found in Title 42 Section 412.3 of the Code of Federal Regulations Patient History Date of Service: 01/04/21 Reason for admission: Near syncope History of Present Illness: Patient is a 70-year-old female who was admitted to the hospital with a near syncopal event. Patient had a stroke in February. Since that time patient had been doing fairly well. Patient states that she had recovered quite well. She was not scheduled to see Neurology for another year. She started having some issues 2 weeks ago with her vision. Her right eye was blurry. Afterwards she started having a headache about 3 days ago. The headache was waxing and waning. She had been eating well. She says that morning she went to [employer] and was not feeling well. She got lightheaded. She started feeling faint. Her states that she went out but not completely. They called EMS and EMS stated that she had a low blood pressure. They do not know the exact number but per ER it was mentioned that her blood pressure was in the 50s. She was brought into the ER and her blood pressure had improved she started feeling better. CT of the brain was negative. Labs were stable. Decision was made to admit the patient to the hospital for further evaluation. She did have hernia surgery a little while ago. At that time she was told to see a air route controller. Will get an echocardiogram. Monitor cardiac status while in the hospital. Patient will be on telemetry. Allergies No Known Allergies Allergy (Verified 10/17/20 15:33) Home Medications: Famotidine [Pepcid] 20 mg PO DAILY 09/25/19 hydrOXYzine HCL [Atarax*] 50 mg PO BEDTIME PRN 09/25/19 Amlodipine Besylate 10 mg PO BEDTIME 03/20/20 Aspirin [Aspirin EC 81 MG] 81 mg PO DAILY #90 tablet. 03/20/20 Atorvastatin Calcium [Lipitor] 40 mg PO BEDTIME #30 tab 03/20/20 Cetirizine HCl 1 tab PO DAILY 03/20/20 Clopidogrel Bisulfate [Plavix*] 75 mg PO DAILY #30 tablet 03/20/20 Docusate [Colace Cap*] 100 mg PO DAILY 10/17/20 Fluocinolone Acetonide [Bnenz-Gmcosej-Mt] 118.28 ml TP PRN PRN 10/17/20 Hydrocortisone/Pramoxine [Hydrocort-Pramoxine 2.5%-1% cm] 4 gm RC PRN PRN 09/29 Omalizumab [Xolair] 150 mg SQ SEECOM 10/17/20 Codeine/APAP [Tylenol W/Codeine #3 tab] 1 tab PO Q4HP PRN #20 tab 10/20/20 Folic Acid 1 mg PO DAILY 01/04/21 - Past Medical/Surgical History Has patient received pneumonia vaccine in the past: No Diabetic: No -: CIU -: Hypertension -: CVA -: ECZEMA -: Hysterectomy -: Cholecystectomy -: detached retina -: arm fx -: CATARACT SURGERY Psychosocial/ Personal History: Patient is retired schoolteacher, lives with her - Family History Mother Medical History: Other (see notes) Notes: Leukemia Father Medical History: Other (see notes) Notes: triple bypass Sister Medical History: Other (see notes) Notes: Lymphoma, ruptured spleen - Social History Smoking Status: Never smoker Alcohol use: No CD- Drugs: No Caffeine use: No Place of Residence: Home Review of Systems 10-point ROS is otherwise unremarkable Physical Examination - Vital Signs Temperature: 97.3 F Blood Pressure: 121/71 Pulse: 88 Respirations: 18 Pulse Ox (%): 98 - Physical Exam General: Alert, In no apparent distress, Oriented x3 HEENT: Atraumatic, PERRLA, Mucous membr. moist/pink, EOMI, Sclerae nonicteric Neck: Supple, 2+ carotid pulse no bruit, No LAD, Without JVD or thyroid abnormality Respiratory: Clear to auscultation bilaterally, Normal air movement Cardiovascular: Regular rate/rhythm, Normal S1 S2 Gastrointestinal: Normal bowel sounds, Soft and benign, Non-distended, No tenderness Musculoskeletal: No clubbing, No swelling, No tenderness Integumentary: No rashes Neurological: Normal gait, Normal speech, Normal strength at 5/5 x4 extr, Normal tone, Sensation intact, Cranial nerves 3-12 intact, Normal affect Lymphatics: No axilla or inguinal lymphadenopathy - Studies Laboratory Data (last 24 hrs) 01/04/21 10:56: PT 12.5, INR 1.09 01/04/21 10:56: WBC 5.80, Hgb 12.6, Hct 37.6, Plt Count 258 01/04/21 10:56: Sodium 143, Potassium 4.1, BUN 17, Creatinine 0.95, Glucose 102, Magnesium 2.1, Total Bilirubin 0.4, AST 24, ALT 40, Alkaline Phosphatase 62 Assessment & Plan - Problems (Diagnosis) (1) Near syncope Current Visit: Yes Status: Acute (2) History of CVA (cerebrovascular accident) Current Visit: Yes Status: Acute (3) Dehydration Current Visit: Yes Status: Acute (4) Hypotension Current Visit: Yes Status: Acute (5) Blurred vision Current Visit: Yes Status: Acute (6) Headache Current Visit: Yes Status: Acute - Plan 1. Physical therapy evaluation to evaluate for stroke. However, her strength is at baseline 2. Patient passed bedside swallow eval 3. Anti-platelet therapy and statin therapy 4. Lipid profile in the morning 5. MRI of the brain/echocardiogram/carotid Doppler 6. Physically patient is doing well and may benefit more from outpatient physical therapy 7. Neurology consultation and Cardiology consultation 8. Outpatient ophthalmology follow-up 9. Neuro checks every 4 hr 10. Monitor on telemetry 11. GI and DVT prophylax Discharge Plan: Home Plan to discharge in: 24 Hours - Advance Directives Does patient have a Living Will: No Does patient have a Durable POA for Healthcare: No - Code Status/Comfort Care Code Status Assessed: Yes Code Status: Full Code Critical Care: No Time Spent Managing PTS Care (In Minutes): 35
[2021-01-05] MEDS: NA CHLORIDE 0.9% 1,000 ML IV SCH (02:53)
[2021-01-05 04:37] LABS: Absolute Lymphocytes (CBC) 0.8 K/uL (0.7-4.9); Basophils % 1.4 % (0-1.3); Hematocrit 34.5 % (36.0-45.0); Lymphocytes % 23.4 % (15.3-44.8); MPV 7.5 fL (7.6-11.3); RBC Red Blood Cell Count 3.92 M/uL (3.86-4.86)
[2021-01-05 04:49] LABS: ALT/SGPT 36 U/L (12-78); AST/SGOT 24 U/L (15-37); Alkaline Phosphatase 60 U/L (45-117); BUN Blood Urea Nitrogen 15 mg/dL (7-18); Bicarbonate 26 mmol/L (21-32); Bilirubin Total 0.4 mg/dL (0.2-1.0); Glucose Level 108 mg/dL (74-106); HDL Cholesterol 47 mg/dL (40-60); LDL Cholesterol, Calculated 66 (<130); Magnesium 2.2 mg/dL (1.8-2.4); Phosphorus 3.2 mg/dL (2.5-4.9); Protein, Total 6.3 g/dL (6.4-8.2); Sodium Level 144 mmol/L (136-145); Troponin I < 0.02 ng/mL (0.0-0.045)
[2021-01-05 08:49] VITALS: O2SAT 98
[2021-01-05] MEDS ORDERED: ASPIRIN EC 81 MG TAB PO SCH (09:00)
[2021-01-05] MEDS ORDERED: ENOXAPARIN 40 MG/0.4 ML SQ SCH (09:00)
[2021-01-05] MEDS ORDERED: CLOPIDOGREL 75 MG TABLET PO SCH (09:00)
--- NOTE | 2021-01-05 09:41 | RAD REPORT ---
EXAM DESCRIPTION: MRI - Brain W/Wo Cont - 01/05/2021 9:22 am CLINICAL HISTORY: Syncope COMPARISON: head CT January 04, 2021 TECHNIQUE: Axial, sagittal, and coronal magnetic images of the brain were obtained. 13 cc MultiHance administered intravenously FINDINGS: Small area of abnormal signal right cerebellum may represent an old infarction. . The ventricles are normal in caliber. Diffusion-weighted/ ADC mapping sequences do not demonstrate evidence of an acute infarction. No abnormal enhancement within the brain is seen. An extra-axial fluid collection is not noted. Fluid within the sinuses/mastoids is not seen IMPRESSION: No acute intracranial abnormality displayed
--- NOTE | 2021-01-05 09:49 | RAD REPORT ---
EXAM DESCRIPTION: MRI - MRA Neck W/Wo Cont - 01/05/2021 9:22 am CLINICAL HISTORY: Syncope COMPARISON: None. TECHNIQUE: Magnetic resonance angiogram of the neck was performed. 19 cc MultiHance was administered intravenously. 3D MIPS reconstruction performed FINDINGS: Mild plaque is present within common and internal carotid arteries bilaterally. Moderate s tenosis involves the proximal right external carotid artery. The left vertebral artery is dominant. . No dissection. IMPRESSION: Mild plaque within the common and internal carotid arteries. NASCET criteria used. Mild 0-49% stenosis Moderate 50-69% stenosis Severe 70-99% stenosis
--- NOTE | 2021-01-05 09:50 | RAD REPORT ---
EXAM DESCRIPTION: MRI - MRA Head Wo Cont - 01/05/2021 9:17 am CLINICAL HISTORY: Syncope COMPARISON: None. TECHNIQUE: Magnetic resonance angiogram was performed. 3D MIPS reconstruction performed FINDINGS: Narrowing of branches of the right middle cerebral artery. Remainder of the anterior cerebral, middle cerebral, posterior cerebral, basilar and distal internal carotid arteries do not demonstrate a significant stenosis. An aneurysm is not displayed. IMPRESSION: Narrowing of branches of the right middle cerebral artery appear chronic. No acute occlusion/stenosis suspected
[2021-01-05 11:56] VITALS: BP 155/77; TEMP 97
--- NOTE | 2021-01-05 13:19 | P.DS ---
Admission Date: 01/04/21 Discharge Date: 01/05/21 Primary Care Provider: Dr. Meng Disposition: ROUTINE DISCHARGE Discharge Condition: GOOD Reason for Admission: Near syncope Consultations: Neurology-Dr. Zavaleta Procedures: COVID: Negative CT Head: COMPARISON: February 2020 TECHNIQUE: Computed axial tomography of the head was obtained. IV contrast was not requested. All CT scans are performed using dose optimization technique as appropriate and may include automated exposure control or mA/KV adjustment according to patient size. FINDINGS: An intracranial bleed is not seen . The ventricles are normal in caliber. No extra-axial fluid collection is noted. Fluid within the sinuses/ mastoids is not seen. IMPRESSION: No acute intracranial abnormality is seen. MRI Head: COMPARISON: head CT January 04, 2021 TECHNIQUE: Axial, sagittal, and coronal magnetic images of the brain were obtained. 13 cc MultiHance administered intravenously FINDINGS: Small area of abnormal signal right cerebellum may represent an old infarction. . The ventricles are normal in caliber. Diffusion-weighted/ ADC mapping sequences do not demonstrate evidence of an acute infarction. No abnormal enhancement within the brain is seen. An extra-axial fluid collection is not noted. Fluid within the sinuses/mastoids is not seen IMPRESSION: No acute intracranial abnormality displayed MRA Brain: COMPARISON: None. TECHNIQUE: Magnetic resonance angiogram was performed. 3D MIPS reconstruction performed FINDINGS: Narrowing of branches of the right middle cerebral artery. Remainder of the anterior cerebral, middle cerebral, posterior cerebral, basilar and distal internal carotid arteries do not demonstrate a significant stenosis. An aneurysm is not displayed. IMPRESSION: Narrowing of branches of the right middle cerebral artery appear chronic. No acute occlusion/stenosis suspected MRA Neck: COMPARISON: None. TECHNIQUE: Magnetic resonance angiogram of the neck was performed. 19 cc MultiHance was administered intravenously. 3D MIPS reconstruction performed FINDINGS: Mild plaque is present within common and internal carotid arteries bilaterally. Moderate stenosis involves the proximal right external carotid artery. The left vertebral artery is dominant. . No dissection. IMPRESSION: Mild plaque within the common and internal carotid arteries. Medical Problem List: Near syncope likely dehydration with renal insufficiency related to overmedication History of CVA Hypotension with hypertension Blurry vision Hyperlipidemia Seasonal allergies Brief History of Present Illness: 70-year-old female with history of hypertension, hyperlipidemia, and prior CVA. Patient had a stroke in February. She had been doing well at that time. Over the past 2 weeks she reported some blurry vision. She also reported a headache about 3 days ago. The headache was waxing and waning. She has been eating well. She reports that she went to voodoo and was not feeling well. She felt lightheaded and started feel faint. EMS had reported low blood pressure at the time. She was placed in Trendelenburg and given IV fluid bolus. Patient was brought to the ER for further evaluation. Initial blood pressure was normal. Initial CT scan unremarkable. The patient was admitted for further evaluation and treatment. Hospital Course: Patient presented with near syncope. Patient with history of hypertension, hyperlipidemia and history of CVA. She had a CVA back in February. Patient found to have a low blood pressure by EMS. Patient given IV fluids. Patient seen and evaluated in the emergency room. She was admitted for further observation. During the course of her stay CT head showed no acute findings. Stroke protocol MRI was unremarkable. Blood pressures have improved. Some mild renal insufficiency noted with mild dehydration. Patient received IV fluids with improvement. Patient seen and evaluated by neurology. No further intervention required. LDL 66. At discharge neurology recommends to continue aspirin 81 mg daily, Plavix 75 mg daily, folic acid 1 mg daily and Lipitor 40 mg daily. Neurology recommends to decrease Norvasc to 5 mg daily due to low blood pressure. This was a likely cause of her near syncopal episode with mild dehydration. Recommend to monitor her blood pressures daily. Recommend to maintain blood pressure less than 130/80. If blood pressure remains less than 110 systolic then she is to hold her blood pressure medication. If her blood pressure increases above 140/90 further adjustment in medication may be required. This could be done with the help of her PCP or neurology. Recommend follow-up with PCP within 1 week to follow-up his hospitalization. Recommend follow-up with neurology in 1 to 2 weeks to follow-up his hospitalization. Neurology may recommend outpatient EEG if symptoms persist. Patient plans to see kiss machine operator soon to evaluate blurry vision. As mentioned above patient with hypertension. Patient has been taking Norvasc 10 mg daily. Due to the near syncopal episode and dehydration, her medicationNorvasc will be decreased to 5 mg daily at discharge. Continue with above recommendations on monitoring of blood pressure daily. Hold blood pressure medication if blood pressure systolic less than 110. If blood pressure remains above 140/90 further adjustment may be required. Patient with hyperlipidemia. LDL 66. At discharge she will continue with Lipitor 40 mg daily. Patient with GERD. At discharge she will continue with Pepcid 20 mg daily. Patient with seasonal allergies. At discharge she will continue with Zyrtec 10 mg daily. As mentioned above patient had some mild renal insufficiency. Patient was given IV fluids with improvement. Recommend to recheck labBMP in 1 week to monitor her progress. Vital Signs/Physical Exam: Temp Pulse Resp BP Pulse Ox 97 F 80 16 155/77 H 98 01/05/21 11:55 01/05/21 11:55 01/05/21 11:55 01/05/21 11:55 01/05/21 11:55 General: Alert, In no apparent distress, Oriented x3, Cooperative HEENT: Atraumatic Neck: Supple Respiratory: Clear to auscultation bilaterally, Normal air movement Cardiovascular: Normal pulses, Regular rate/rhythm Gastrointestinal: Normal bowel sounds, No ascites, No masses, No rebound, No guarding Musculoskeletal: No erythema, No tenderness, No warmth Integumentary: No tenderness/swelling, No erythema, No warmth, No cyanosis Neurological: Normal speech, Normal strength at 5/5 x4 extr, Normal tone Laboratory Data at Discharge: WBC 3.60 K/uL (4.3-10.9) L D 01/05/21 03:52 Hgb 11.8 g/dL (12.0-15.0) L 01/05/21 03:52 Hct 34.5 % (36.0-45.0) L 01/05/21 03:52 Plt Count 205 K/uL (152-406) D 01/05/21 03:52 PT 12.5 SECONDS (9.5-12.5) 01/04/21 10:56 INR 1.09 01/04/21 10:56 Sodium 144 mmol/L (136-145) 01/05/21 03:52 Potassium 4.0 mmol/L (3.5-5.1) 01/05/21 03:52 BUN 15 mg/dL (7-18) 01/05/21 03:52 Creatinine 0.88 mg/dL (0.55-1.3) 01/05/21 03:52 Glucose 108 mg/dL (74-106) H 01/05/21 03:52 Phosphorus 3.2 mg/dL (2.5-4.9) 01/05/21 03:52 Magnesium 2.2 mg/dL (1.8-2.4) 01/05/21 03:52 Total Bilirubin 0.4 mg/dL (0.2-1.0) 01/05/21 03:52 AST 24 U/L (15-37) 01/05/21 03:52 ALT 36 U/L (12-78) 01/05/21 03:52 Alkaline Phosphatase 60 U/L (45-117) 01/05/21 03:52 Troponin I < 0.02 ng/mL (0.0-0.045) 01/05/21 03:52 Triglycerides 119 mg/dL (<150) 01/05/21 03:52 Cholesterol 137 mg/dL (<200) 01/05/21 03:52 HDL Cholesterol 47 mg/dL (40-60) 01/05/21 03:52 Cholesterol/HDL Ratio 2.91 01/05/21 03:52 Home Medications: Famotidine [Pepcid] 20 mg PO DAILY 09/25/19 hydrOXYzine HCL [Atarax*] 50 mg PO BEDTIME PRN 09/25/19 Aspirin [Aspirin EC 81 MG] 81 mg PO DAILY #90 tablet. 03/20/20 Atorvastatin Calcium [Lipitor] 40 mg PO BEDTIME #30 tab 03/20/20 Cetirizine HCl 1 tab PO DAILY 03/20/20 Clopidogrel Bisulfate [Plavix*] 75 mg PO DAILY #30 tablet 03/20/20 Docusate [Colace Cap*] 100 mg PO DAILY 10/17/20 Fluocinolone Acetonide [Totlf-Oczesay-Cy] 118.28 ml TP PRN PRN 10/17/20 Hydrocortisone/Pramoxine [Hydrocort-Pramoxine 2.5%-1% cm] 4 gm RC PRN PRN 10/17/20 Omalizumab [Xolair] 150 mg SQ SEECOM 10/17/20 Codeine/APAP [Tylenol #3*] 1 tab PO Q4HP PRN #20 tab 10/20/20 Folic Acid 1 mg PO DAILY 01/04/21 Amlodipine Besylate 5 mg PO BEDTIME #30 01/05/21 New Medications: Amlodipine Besylate 5 mg PO BEDTIME #30 Physician Discharge Instructions: Patient presented with near syncope. Patient with history of hypertension, hyperlipidemia and history of CVA. She had a CVA back in February. Patient found to have a low blood pressure by EMS. Patient given IV fluids. Patient seen and evaluated in the emergency room. She was admitted for further observation. During the course of her stay CT head showed no acute findings. Stroke protocol MRI was unremarkable. Blood pressures have improved. Some mild renal insufficiency noted with mild dehydration. Patient received IV fluids with improvement. Patient seen and evaluated by neurology. No further intervention required. LDL 66. At discharge neurology recommends to continue aspirin 81 mg daily, Plavix 75 mg daily, folic acid 1 mg daily and Lipitor 40 mg daily. Neurology recommends to decrease Norvasc to 5 mg daily due to low blood pressure. This was a likely cause of her near syncopal episode with mild dehydration. Recommend to monitor her blood pressures daily. Recommend to maintain blood pressure less than 130/80. If blood pressure remains less than 110 systolic then she is to hold her blood pressure medication. If her blood pressure increases above 140/90 further adjustment in medication may be required. This could be done with the help of her PCP or neurology. Recommend follow-up with PCP within 1 week to follow-up his hospitalization. Recommend follow-up with neurology in 1 to 2 weeks to follow-up his hospitalization. Neurology may recommend outpatient EEG if symptoms persist. Patient plans to see kiss machine operator soon to evaluate blurry vision. As mentioned above patient with hypertension. Patient has been taking Norvasc 10 mg daily. Due to the near syncopal episode and dehydration, her medicationNorvasc will be decreased to 5 mg daily at discharge. Continue with above recommendations on monitoring of blood pressure daily. Hold blood pressure medication if blood pressure systolic less than 110. If blood pressure remains above 140/90 further adjustment may be required. Patient with hyperlipidemia. LDL 66. At discharge she will continue with Lipitor 40 mg daily. Patient with GERD. At discharge she will continue with Pepcid 20 mg daily. Patient with seasonal allergies. At discharge she will continue with Zyrtec 10 mg daily. As mentioned above patient had some mild renal insufficiency. Patient was given IV fluids with improvement. Recommend to recheck labBMP in 1 week to monitor her progress. Diet: AHA Activity: Fall precautions Followup: Tom Loving PA [Primary Care Provider] - Time spent managing pt's care (in minutes): 55
--- NOTE | 2021-01-05 18:27 | EKG ---
Test Date: 2021-01-04 Test Time: 10:54:13 Electric Meter Reader: FOREIGN MEASUREMENT RESULTS: Intervals: Rate: 69 UT: 170 QRSD: 72 QT: 412 QTc: 441 [place]: P: 62 UT: 170 QRS: 22 T: 55 INTERPRETIVE STATEMENTS: Normal sinus rhythm Low voltage QRS Borderline ECG Compared to ECG 10/17/2020 14:44:56 Low QRS voltage now present Myocardial infarct finding no longer present Electronically Signed On 01-05-21 18:23:50 CASING BLOWER by Ken Alvarenga
--- NOTE | 2021-01-06 00:27 | CON ---
History Of Present Illness: Ms. Morgan is a 70-year-old right-handed patient with hyperten juan, dyslipidemia, who comes in with a syncopal episode while at [employer]. She was in Tuesday school a t [employer] when she suddenly felt warm and then took off her sweater. She fainted shortly thereafter b y slumping to the side onto her and said that she was out for probably 10 to 20 seconds. She woke up and felt weak and lightheaded and was given some water to drink. The [facility] arrived and she said her blood pressure was "low." She took another 10 minutes to return toward normal. She said earlier that day she had some coffee and her medications with sips of water, but d id not drink much water. The event occurred around 10 a.m. She came to [facility] and her head CT scan around 10:43 a.m. showed no acute ischemic or hemorrhagic change. Subsequent brain MRI done on stroke protocol ruled out the presence of an acute ischemic or hemorrhagic stroke. The study did show an old right cerebellar infarct that was small. The magnetic resonance angiogram of her ne ck showed mild plaque in the common and internal carotid arteries. Her brain magnetic resonance víctor ogram showed narrowing of branches of the right middle cerebral artery, which appeared chronic. Ther e were no acute changes identified. Her electrocardiogram showed normal sinus rhythm with low voltag e QRS, borderline ECG. Blood work revealed essentially unremarkable complete blood count with differ ential, normal coagulation panel, and a creatinine initially 0.98 with rehydration 0.88, glucose was 102 to 108, calcium 8.6. Liver function studies unremarkable. Cholesterol panel showed an LDL of 66 , HDL 47. COVID-19 test was negative. Since hospitalization and receiving hydration, she has maintained baseline level of functioning and i s ready to be discharged home. She has been on cardiac monitoring with no significant arrhythmias. Past Medical History: Hypertension, prior stroke, and eczema. Past Surgical History: Hysterectomy, cholecystectomy, detached retina, right arm fracture, and catar act surgery. Allergies: NO KNOWN DRUG ALLERGIES. Home Medications: Pepcid 20 mg daily, Atarax 50 mg at bedtime, amlodipine 10 mg at bedtime, aspirin 81 mg daily, Lipitor 40 mg at bedtime, Plavix 75 mg daily, Colace 100 mg daily, and folic acid 1 mg d aily. Family History: Mother with leukemia. Father, coronary artery bypass grafting. Sister, lymphoma. Social History: No alcohol, tobacco, or IV drug use. Review of Systems: Aside from mentioned above, she denies any recent fevers, chills, nausea, vomiting, myalgias, arthral gias, headache, weight change, rash, psychiatric complaints, gastrointestinal, or genitourinary issue s. Physical Examination: Vital Signs: Blood pressure 155/77, pulse 69, respiratory rate 16, temperature 98.2. Oxygen saturat ion 100% on room air, weight 125 pounds, height 5 feet 3 inches, BMI in the low 20s. General: Ms. Morgan is resting in bed. She is in no acute distress. She is normocephalic, atraumat ic. Sclerae anicteric. Oropharynx is pink and moist. Neck: Supple. Chest: Clear. Heart: Regular. Extremities: Show no clubbing, cyanosis, or edema. Neurological: She is alert and oriented to situation, place, and person. Follows commands appropria tely. She has no cranial nerve deficits. No focal motor, sensory, coordination, or gait deficits. Assessment: Ms. Morgan is a 70-year-old patient with possible dehydration related to cardiogenic syn cope. She has no evidence of a neurological deficit. Despite her old stroke, she has recovered very well. Plan: 1.Aspirin, Plavix, folic acid, statin, and control of her blood pressure. 2.She may be discharged home and follow up in Dr. Zavaleta's clinic 1 month later and consider outpa tient EEG. 3.The patient should maintain a diary of any syncopal or near syncopal episodes. 4.No antiepileptic medication to be given at this time. LB/MODL Voice ID: [id number] Report ID: [id number]
--- NOTE | 2021-01-06 06:14 | ECHO ---
HEIGHT: 5 ft 3 in WEIGHT: 125 lb 15.907 oz DATE OF STUDY: 01/05/[address]: Mora Rao MD 2-DIMENSIONAL: YES M.MODE: YES DOPPLER: YES COLOR FLOW: YES TDS: PORTABLE: DEFINITY: BUBBLE STUDY: DIAGNOSIS: STROKE CARDIAC HISTORY: CATHERIZATION: NO SURGERY: NO PROSTHETIC VALVE: NO PACEMAKER: NO MEASUREMENTS (cm) DIASTOLIC (NORMALS) SYSTOLIC (NORMALS) IVSd 0.8 (0.6-1.2) LA Diam 3.5 (1.9-4.0) LVEF % LVIDd 3.8 (3.5-5.7) LVIDs 2.0 (2.0-3.5) %FS 48% LVPWd 0.8 (0.6-1.2) Ao Diam 3.0 (2.0-3.7) 2 DIMENSIONAL ASSESSMENT: RIGHT ATRIUM: LEFT ATRIUM: NORMAL RIGHT VENTRICLE: NORMAL LEFT VENTRICLE: NORMAL TRICUSPID VALVE: NORMAL MITRAL VALVE: NORMAL PULMONIC VALVE: NORMAL AORTIC VALVE: NORMAL PERICARDIAL EFFUSION: NONE AORTIC ROOT: NORMAL LEFT VENTRICULAR WALL MOTION: NORMAL DOPPLER/COLOR FLOW: MILD TRICUSPID REGURGITATION. NORMAL RIGHT VENTRICULAR SYSTOLIC PRESSURE. COMMENTS: MILD TRICUSPID REGURGITATION. NORMAL RIGHT VENTRICULAR SYSTOLIC PRESSURE. NO WALL MOTION ABNORMALITY. NO EFFUSION. TECHNOLOGIST: SUSAN JARRETT
--- NOTE | 2021-01-10 20:09 | CON ---
Date of Consultation: 01/05/2021 Reason For Consultation: Syncope. History Of Present Illness: Ms. Morgan is a 70-year-old who came in with syncope. She has a history of CVA, hypertension for which she takes aspirin and Plavix. Her syncope occurred at [employer] after s he got up from a chair suddenly and fainted. She does not have any headache. Did not have any palpi tation. Did not have any chest pain or shortness of breath. Denied any nausea, vomiting, diaphoresi s, PND, orthopnea, pedal edema, palpitations, or syncope. Past Medical History: Includes hypertension and CVA, dyslipidemia, gastroesophageal reflux disease. Allergies: NONE. Review of Systems: Negative. Social History: Negative. Medications: At home include Plavix, amlodipine, aspirin, Lipitor, Pepcid, hydroxyzine, and Zyrtec. Physical Examination: Vital Signs: Stable, afebrile. HEENT: Negative. Neck: Supple without any bruit, lymphadenopathy, JVD, or thyromegaly. Chest: Clear to auscultation and percussion. Cardiac: Revealed a regular rhythm and rate. No murmurs, gallops, or rubs. Abdomen: Benign. Extremities: Revealed no clubbing, cyanosis, or edema. Diagnostic Data: Including neck MRA, brain MRI and MRA and brain MRI showed no stroke. She had some narrowing in her middle cerebral artery, which is chronic. Neck MRA revealed mild atherosclerosis. Echocardiogram showed normal wall motion with a normal ejection fraction, normal right ventricular s ystolic pressure. Mild mitral regurgitation and tricuspid regurgitation. Impression And Plan: I think Ms. Morgan's main problem is with orthostatic hypotension. I do not th ink she has suffered any significant neurological workup. Dr. Zavaleta is about to see her sometime later on today. I think she can go home whenever it is okay with admitting physician. It may be daryl sonable to hold amlodipine for few days and I will be happy to see her in the office as an outpatient . Her other problems including dyslipidemia, gastroesophageal reflux disease are stable at this poin t. ELMO/TIMUR Voice ID: [id number] Report ID: [id number]
== END 2021-01-05 14:45 | disposition home or self-care (01) ==
LOC: ER 10:40 → ERHOLD 13:11 → 2ND 13:37
PROVIDERS: ADMIT Hospitalist; ATTEND Hospitalist
DX: R55 Syncope and collapse (principal); E86.0 Dehydration; N28.9 Disorder of kidney and ureter, unspecified; I95.9 Hypotension, unspecified; I10 Essential (primary) hypertension; H53.8 Other visual disturbances; J30.2 Other seasonal allergic rhinitis; E78.5 Hyperlipidemia, unspecified; K21.9 Gastro-esophageal reflux disease without esophagitis; Z86.73 Personal history of transient ischemic attack (TIA), and cerebral infarction without residual deficits; Z20.822 Contact with and (suspected) exposure to COVID-19
CPT/HCPCS: 96361; 93005; 93306; 85025 ×2; 80048; 36415; 83735 ×2; 84100; 85610; 80061; 80076; 84484 ×2; 80053; 83880; 70450; 71045; 70553; 70544; 70549; 97112; 97116; 97161; 96374; 99285; U0003; J1650; J7040; J7030 ×2; J2405; G0378 ×3

== ENCOUNTER → 2021-07-28 | Day surgery (SDC) | payer OTHER ==
--- NOTE | 2021-07-28 12:30 | RAD REPORT ---
EXAM DESCRIPTION: US - Breast Core BX w/US Guidance - 07/28/2021 11:08 am CLINICAL HISTORY: ICD R 92.8 COMPARISON: July 16, 2020 ultrasound TECHNIQUE: The risks, benefits alternatives to the procedure were explained to the patient and infor med consent obtained. Skin and subcutaneous tissues anesthetized with lidocaine. Under sonographic guidance, 7 x 18 gauge core specimens were obtained of the enlarged lymph node in t he right breast/axilla. Tissue given to pathology. Patient experienced no immediate complication IMPRESSION: Technically successful ultrasound guided core biopsy of a presumed lymph node in the upp er outer quadrant of the right breast.
== END ==
LOC: DS 09:52
PROVIDERS: ATTEND Surgery
DX: N63.10 Unspecified lump in the right breast, unspecified quadrant (principal)
CPT/HCPCS: 19083; 88305

== ENCOUNTER → 2023-02-15 | Emergency (ER) | payer OTHER ==
[~2023-02-15] MED LIST: NA CHLORIDE 0.9% 1,000 ML ONE
--- OUTSIDE RECORDS SUMMARY | 2023-02-15 14:32 | XMS REPORT | Continuity of Care Document ---
Author Name Unknown Address [address] [place] [address] [address] [id number] [facility] Address [address] [facility]. [address] [place] [address] Care Team Providers Care Ship Worker Name Role Phone [email or web address] Attending Clinician Unavaila ble CHARLOTTE GOLDSMITH AQUILES Attending Clinician Unavail able [email or web address]_S Admitting Clinician Unavaila ble Payers Payer Name Policy Type Policy Number Effective Date Expirati on Date Source [facility] (MEDICARE REPLACEMENT/ADVANTAGE - PPO) [id number] Encounters Start Date/Time End Date/Time Encounter Type Admission Type Attending Clinicians Care Facility Care Department Encounter ID Source 2022-12-13 00:00:00 2022-12-13 00:00:00 Outpatient [email or web address] [email or web address]_S PRIV PRIV [id number] [facility] 2022-12-13 00:00:00 2022-12-13 00:00:00 Outpatient [email or web address]_S PRIV PRIV [id number] [facility] 2022-12-12 00:00:00 2022-12-12 00:00:00 Outpatient [email or web address] [email or web address]_S PRIV PRIV [id number] [facility] 2022-12-11 00:00:00 2022-12-11 00:00:00 Outpatient [email or web address] diyala_S PRIV PRIV [id number] [facility] 2022-11-08 00:00:00 2022-11-08 00:00:00 Outpatient [email or web address] diyala_S PRIV PRIV [id number] [facility] 2022-11-08 00:00:00 2022-11-08 00:00:00 Outpatient [email or web address]_Ka diyala_S PRIV PRIV [id number] [facility] 2022-11-07 00:00:00 2022-11-07 00:00:00 Outpatient [email or web address]_Ka diyala_S PRIV PRIV [id number] [facility] 2022-11-04 00:00:00 2022-11-04 00:00:00 Outpatient [email or web address] diyala_S PRIV PRIV [id number] [facility] 2022-11-03 00:00:00 2022-11-03 00:00:00 Outpatient [email or web address] diyala_S PRIV PRIV [id number] [facility] 2022-01-15 08:28:00 2022-01-15 23:59:00 Outpatient CHARLOTTE GOLDSMITH [facility] [address] [facility]
[2023-02-15 15:30] LABS: Absolute Lymphocytes (CBC) 0.3 K/uL (0.7-4.9); Lymphocytes % 10.3 % (15.3-44.8); MCV 96.6 fL (80-100); Platelets 170 thou/uL (152-406); RBC Red Blood Cell Count 3.83 M/uL (3.86-4.86)
--- NOTE | 2023-02-15 15:36 | RAD REPORT ---
EXAM DESCRIPTION: CT - Head Brain Wo Cont - 02/15/2023 3:22 pm CLINICAL HISTORY: DIZZINESS Headache, drowsiness COMPARISON: Head Brain Wo Cont dated 01/04/2021; Head Brain Wo Cont dated 03/27/2020 TECHNIQUE: All CT scans are performed using dose optimization technique as appropriate and may inclu de automated exposure control or mA/KV adjustment according to patient size. FINDINGS: No intracranial hemorrhage, hydrocephalus or extra-axial fluid collection.Moderate brain a trophy.No areas of brain edema or evidence of midline shift. The paranasal sinuses and mastoids are clear. The calvarium is intact. IMPRESSION: No acute intracranial abnormality.
[2023-02-15 15:42] LABS: ALT/SGPT 25 U/L (13-56); AST/SGOT 18 U/L (15-37); Albumin 3.7 g/dL (3.4-5.0); Alkaline Phosphatase 80 U/L (45-117); BUN Blood Urea Nitrogen 14 mg/dL (7-18); Bicarbonate 25 mEq/L (21-32); Bilirubin Total 0.3 mg/dL (0.2-1.0); Glomerular Filtration Rate 57 ml/min (=/>90); Glucose Level 110 mg/dL (74-106); Magnesium 2.2 mg/dL (1.6-2.4); Protein, Total 7.2 g/dL (6.4-8.2); Sodium Level 136 mEq/L (136-145); Troponin High Sensitivity 5.6 pg/mL (<58.9)
[2023-02-15 15:45] LABS: Bilirubin Direct < 0.1 mg/dL (0-0.2); Bilirubin Indirect, Calculated ND mg/dL (0.2-0.8)
--- NOTE | 2023-02-15 16:23 | RAD REPORT ---
EXAM DESCRIPTION: RAD - Chest Single View - 02/15/2023 4:16 pm CLINICAL HISTORY: near syncope Chest pain. COMPARISON: Chest Single View dated 01/04/2021; Chest Pa And Lat (2 Views) dated 10/17/2020; Chest Sin gle View dated 03/27/2020; Chest Single View dated 03/19/2020 FINDINGS: Portable technique limits examination quality. The lungs are mildly emphysematous but grossly clear. The heart is normal in size. No displaced fract ures. IMPRESSION: No acute intrathoracic process suspected.
--- NOTE | 2023-02-15 16:59 | EDPHYS ---
Physician Documentation [facility] Name: Hazel Morgan Age: 72 yrs Sex: Female : 1950 Arrival Date: 02/15/2023 Time: 14:30 Bed 19 Private MD: ED Physician Jose Mireles HPI: 02/15 15:27 This 72 yrs old Female presents to ER via Ambulatory with complaints of Blurred Vision, rt Dizziness. 15:27 Patient presents to the ED with dizziness. Described as a lightheadedness. It has been rt present for about 3 days. She also reports a few weeks of blurred vision for which she is seeing an photo cartographer for. 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 She states that she is somewhat off balance with her gait. Denies other acute complaints, symptoms are moderate in severity, no other aggravating or alleviating factors.. Historical: - Allergies: 14:40 Codeine; nj1 - PMHx: 14:40 CIU; CVA; Hypertension; Leukemia; nj1 - Immunization history:: Client reports receiving the 2nd dose of the Covid vaccine. - Social history:: Smoking status: Patient denies any tobacco usage or history of. - Family history:: not pertinent. ROS: 15:27 Constitutional: Negative for fever, chills, and weight loss, Cardiovascular: Negative rt for chest pain, palpitations, and edema, Respiratory: Negative for shortness of breath, cough, wheezing, and pleuritic chest pain, Abdomen/GI: Negative for abdominal pain, nausea, vomiting, diarrhea, and constipation, Skin: Negative for injury, rash, and discoloration, Psych: Negative for depression, anxiety, suicide ideation, homicidal ideation, and hallucinations, 15:27 Eyes: Positive for blurry vision, Negative for pain, 15:27 Neuro: Positive for dizziness, Negative for altered mental status, Exam: 15:27 Constitutional: This is a well developed, well nourished patient who is awake, alert, rt and in no acute distress. Head/Face: Normocephalic, atraumatic. Chest/axilla: Normal chest wall appearance and motion. Nontender with no deformity. No lesions are appreciated. Cardiovascular: Regular rate and rhythm with a normal S1 and S2. No gallops, murmurs, or rubs. Normal PMI, no JVD. No pulse deficits. Respiratory: Lungs have equal breath sounds bilaterally, clear to auscultation and percussion. No rales, rhonchi or wheezes noted. No increased work of breathing, no retractions or nasal flaring. Abdomen/GI: Soft, non-tender, with normal bowel sounds. No distension or tympany. No guarding or rebound. No evidence of tenderness throughout. Skin: Warm, dry with normal turgor. Normal color with no rashes, no lesions, and no evidence of cellulitis. MS/ Extremity: Pulses equal, no cyanosis. Neurovascular intact. Full, normal range of motion. Psych: Awake, alert, with orientation to person, place and time. Behavior, mood, and affect are within normal limits. 15:27 Eyes: Extraocular muscles are intact, conjunctiva is normal, no visual field deficits on the right eye, blind in the left eye, head impulse negative. 15:27 ECG was reviewed by the Attending Physician. 15:27 Neuro: Cranial nerves II through XII intact speech normal, strength and sensation intact in upper and lower extremities, no ataxia on [id number]., Vital Signs: 14:32 BP 179 / 89; Pulse 96; Resp 16; Temp 98.2(TE); Pulse Ox 99% on R/A; Weight 61.23 kg; nj1 Height 5 ft. 3 in. ; Pain 0/10; 15:16 BP 156 / 75; Pulse 81; Resp 18; Pulse Ox 99% on R/A; ld1 15:41 BP 148 / 67 Supine; Pulse 77; ld1 15:43 BP 157 / 83 Sitting; Pulse 80; ld1 15:45 BP 163 / 80 Standing; Pulse 82; ld1 14:32 Body Mass Index 23.91 (61.23 kg, 160.02 cm) nj 14:32 Pain Scale: Adult nj1 MDM: 14:47 Patient medically screened. rt 17:06 Differential diagnosis: CVA, TIA, near syncope, intravascular volume depletion, rt dysrhythmia, electro disturbance, anemia. Data reviewed: vital signs, nurses notes, lab test result(s), EKG, radiologic studies. Consideration of Admission/Observation Escalation of care including admission/observation considered. Symptoms resolved with IV fluids, no orthostasis, labs, CT scan are benign, patient with normal EKG. Patient has no focal neurologic deficits, symptoms are not typical of an acute CVA, do not believe that she requires admission for MRI. Stable for outpatient care, strict return precautions discussed.. I considered the following discharge prescriptions or medication management in the emergency department Medications were administered in the Emergency Department. See MAR. Independent interpretation of the following test(s) in the Emergency Department CT Scan: My interpretation is No hemorrhage seen on interpretation of CT scan images. Care significantly affected by the following chronic conditions: CVA, CLL. Counseling: I had a detailed discussion with the patient and/or guardian regarding the historical points, exam findings, and any diagnostic results supporting the discharge/admit diagnosis, lab results, radiology results, the need for outpatient follow up, to return to the emergency department if symptoms worsen or persist or if there are any questions or concerns that arise at home. Response to treatment: the patient's symptoms have markedly improved after treatment. 02/15 14:58 Order name: Basic Metabolic Panel; Complete Time: 15:47 rt 02/15 14:58 Order name: CBC with Diff; Complete Time: 15:47 rt 02/15 14:58 Order name: LFT's; Complete Time: 15:47 rt 02/15 14:58 Order name: Magnesium; Complete Time: 15:47 rt 02/15 14:58 Order name: Troponin HS; Complete Time: 15:47 rt 02/15 14:58 Order name: XRAY Chest (1 view); Complete Time: 16:27 rt 02/15 14:58 Order name: CT Head Brain wo Cont; Complete Time: 15:47 rt 02/15 14:58 Order name: EKG; Complete Time: 14:58 rt 02/15 14:58 Order name: Orthostatics; Complete Time: 15:45 rt 02/15 14:58 Order name: Cardiac monitoring; Complete Time: 15:15 rt 02/15 14:58 Order name: EKG - Nurse/Tech; Complete Time: 15:15 rt 02/15 14:58 Order name: IV Saline Lock; Complete Time: 15:15 rt 02/15 14:58 Order name: Labs collected and sent; Complete Time: 15:15 rt 02/15 14:58 Order name: O2 Per Protocol; Complete Time: 15:02 rt 02/15 14:58 Order name: O2 Sat Monitoring; Complete Time: 15:03 rt EC:27 Rate is 75 beats/min. Rhythm is regular, Normal Sinus Rhythm with No ectopy. QRS [place] rt is Normal. MA interval is normal. QRS interval is normal. QT interval is normal. No Q waves. T waves are Normal. No ST changes noted. Interpreted by me. Administered Medications: 15:15 Drug: NS 0.9% IV 1000 ml IV at 1 bolus Per protocol; 1000 mL bolus Route: IV; Rate: 1 ld1 bolus; Site: right antecubital; Disposition Summary: 02/15/23 16:58 Discharge Ordered Notes: Location: Home rt Condition: Stable rt Diagnosis - Syncope Near rt Followup: rt - With: Private Physician - When: 2 - 3 days - Reason: Discharge Instructions: - Discharge Summary Sheet rt - Near-Syncope rt Forms: - Medication Reconciliation Form rt - Thank You Letter rt - Antibiotic Education rt - Prescription Opioid Use rt - Patient Portal Instructions rt - Leadership Thank You Letter rt Signatures: Dispatcher [employer] Amalia Garcia RN RN ld1 Jose Mireles MD MD rt Jaja Barton RN RN nj1
--- NOTE | 2023-02-15 16:59 | ER ---
Nurse's Notes [facility] Name: Hazel Morgan Age: 72 yrs Sex: Female : 1950 Arrival Date: 02/15/2023 Time: 14:30 Bed 19 Private MD: Diagnosis: Syncope Near Presentation: 02/15 14:32 Chief complaint: Patient states: Blurry vision for 2 weeks, ever since she got her eye nj1 glasses prescription changed, as well as dizziness for the last 3 days. Concerned because she had a stroke 3 years ago. 14:32 Coronavirus screen: Vaccine status: Patient reports receiving the 2nd dose of the covid nj1 vaccine. Ebola Screen: Patient denies travel to an Ebola-affected area in the 21 days before illness onset. Initial Sepsis Screen: Does the patient meet any 2 criteria? HR > 90 bpm. No. Patient's initial sepsis screen is negative. Does the patient have a suspected source of infection? No. Patient's initial sepsis screen is negative. Risk Assessment: Do you want to hurt yourself or someone else? Patient reports no desire to harm self or others. Onset of symptoms was January 2023. 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 - Social history:: Smoking status: Patient denies any tobacco usage or history of. - Family history:: not pertinent. Screenin:16 [facility] ED Fall Risk Assessment (Adult) History of falling in the last 3 months, ld1 including since admission No falls in past 3 months (0 pts). Abuse screen: Denies threats or abuse. Denies injuries from another. Nutritional screening: No deficits noted. Tuberculosis screening: No symptoms or risk factors identified. Assessment: 15:16 General: Appears in no apparent distress. comfortable, Behavior is calm, cooperative, ld1 appropriate for age. Pain: Denies pain. Neuro: Level of Consciousness is awake, alert, obeys commands, Oriented to person, place, time, situation. Neuro: Reports blurred vision dizziness. Cardiovascular: Cardiovascular: Capillary refill < 3 seconds Patient's skin is warm and dry. Rhythm is sinus rhythm. Respiratory: Airway is patent Respiratory effort is even, unlabored. GI: Abdomen is flat, non-distended. : No signs and/or symptoms were reported regarding the genitourinary system. EENT: No signs and/or symptoms were reported regarding the EENT system. Derm: No signs and/or symptoms reported regarding the dermatologic system. Musculoskeletal: No signs and/or symptoms reported regarding the musculoskeletal system. Vital Signs: 14:32 BP 179 / 89; Pulse 96; Resp 16; Temp 98.2(TE); Pulse Ox 99% on R/A; Weight 61.23 kg; nj1 Height 5 ft. 3 in. ; Pain 0/10; 15:16 BP 156 / 75; Pulse 81; Resp 18; Pulse Ox 99% on R/A; ld1 15:41 BP 148 / 67 Supine; Pulse 77; ld1 15:43 BP 157 / 83 Sitting; Pulse 80; ld1 15:45 BP 163 / 80 Standing; Pulse 82; ld1 14:32 Body Mass Index 23.91 (61.23 kg, 160.02 cm) nj1 14:32 Pain Scale: Adult [facility] ED Course: 14:31 Patient arrived in ED. im 14:37 Jose Mireles MD is Attending Physician. rt 14:40 Triage completed. nj1 14:41 Arm band placed on left wrist. nj1 14:42 Amalia Ellsworth, PIERRE is Primary Nurse. ld1 15:15 No provider procedures requiring assistance completed. Inserted saline lock: 20 gauge ld1 in right antecubital area, using aseptic technique. Blood collected. 15:16 Patient has correct armband on for positive identification. Placed in gown. Bed in low ld1 position. Call light in reach. Side rails up X2. bus monitor on. Pulse ox on. NIBP on. Door closed. Noise minimized. Warm blanket given. 15:24 CT Head Brain wo Cont In Process Unspecified. EDMS 16:18 XRAY Chest (1 view) In Process Unspecified. EDMS 17:06 IV discontinued, intact, bleeding controlled, No redness/swelling at site. ld1 Administered Medications: 15:15 Drug: NS 0.9% IV 1000 ml IV at 1 bolus Per protocol; 1000 mL bolus Route: IV; Rate: 1 ld1 bolus; Site: right antecubital; Medication: 15:16 VIS not applicable for this client. ld1 Outcome: 16:58 Discharge ordered by . rt 17:05 Discharged to home ambulatory, ld1 17:05 Condition: stable 17:05 Discharge instructions given to patient, Instructed on discharge instructions, follow up and referral plans. Demonstrated understanding of instructions, follow-up care, 17:09 Patient left the ED. ld1 Signatures: Dispatcher [employer] EDMS Amalia Ellsworth RN RN ld1 Jose Mireles MD MD rt Jaja Barton RN RN nj1 Claudette Bain
[2023-02-15 17:56] VITALS: TEMP 98.2; O2SAT 99
[2023-02-15 18:00] VITALS: BP 163/80
--- NOTE | 2023-02-16 12:52 | EKG ---
Test Date: 2023-02-15 Test Time: 15:09:08 Gas Turbine Mechanic: Andrea BHATTI MEASUREMENT RESULTS: Intervals: Rate: 0 RI: QRSD: 0 QT: 0 QTc: 0 [place]: P: RI: QRS: 0 T: 0 INTERPRETIVE STATEMENTS: No QRS complexes found, no ECG analysis possible Compared to ECG 01/04/2021 10:54:13 Sinus rhythm no longer present Electronically Signed On 02-16-23 12:49:38 [employer]ING [employer] by Wes Wilson
--- NOTE | 2023-02-18 15:15 | EKG ---
Test Date: 2023-02-15 Test Time: 15:12:53 Wall Attendant: Andrea SI MEASUREMENT RESULTS: Intervals: Rate: 75 WV: 168 QRSD: 78 QT: 382 QTc: 426 [place]: P: 57 WV: 168 QRS: 3 T: 58 INTERPRETIVE STATEMENTS: Normal sinus rhythm Normal ECG Compared to ECG 02/15/2023 15:09:08 No significant changes Electronically Signed On 02-18-23 15:10:29 [place] [employer] by Wes Wilson
== END ==
LOC: ER 14:30
DX: R55 Syncope and collapse (principal); R42 Dizziness and giddiness; H53.8 Other visual disturbances; I10 Essential (primary) hypertension; Z85.6 Personal history of leukemia; Z88.5 Allergy status to narcotic agent; Z86.73 Personal history of transient ischemic attack (TIA), and cerebral infarction without residual deficits
CPT/HCPCS: 93005; 85025; 80048; 36415; 83735; 80076; 84484; 70450; 71045; 99285; J7030